=== PATIENT | female | born 1945 | race Caucasian/White ===

== ENCOUNTER → 2023-03-15 10:34 | Outpatient (REF) | payer OTHER, SELFPAY ==
[2023-03-15 13:35] LABS: % Basophils 0.8 % (0-2); % Eosinophils 4.4 % (0-6); % Immature Granulocytes 0.2 % (0-0.5); % Lymphocytes 20.1 % (20.5-51.1); % Neutrophils 62.5 % (42.2-75.2); Absolute Basophils 0.1 10^3/uL (0-0.2); Absolute Eosinophils 0.4 10^3/uL (0-0.7); Absolute Lymphocytes 1.7 10^3/uL (1.2-3.4); Absolute Neutrophils 5.4 10^3/uL (1.4-6.5); Hematocrit 37.6 % (37.0-47.0); Hemoglobin 12.7 g/dL (12.0-16.0); Mean Corp Hgb Conc. 33.8 g/dL (33.0-37.0); Mean Corpuscular Hgb 31.8 pg (27.0-31.0); Mean Corpuscular Volume 94.2 fL (81.0-99.0); Mean Platelet Volume 10.9 fL (7.4-10.4); Nucleated Red Blood Cells % 0 %; Platelet Count 251 10^3/uL (130-400); Red Blood Cell Count 3.99 10^6/uL (4.20-5.40); Red Cell Dist. Width 14.7 % (11.5-14.5); White Blood Cell Count 8.6 10^3/uL (4.8-10.8)
[2023-03-15 13:51] LABS: ALT (SGPT) 22 U/L (0-35); AST (SGOT) 32 U/L (14-36); Albumin 4.3 g/dl (3.5-5.0); Alkaline Phosphatase 64 U/L (38-126); Blood Urea Nitrogen 21 mg/dl (7-17); Carbon Dioxide 27 mmol/L (22-30); Chloride 101 mmol/L (98-107); Glucose 132 mg/dl (70-99); HDL Cholesterol 71 mg/dl; LDL Cholesterol, Calculated 63 mg/dl; Potassium 3.9 mmol/L (3.5-5.1); Sodium 132 mmol/L (135-145); Total Bilirubin 1.1 mg/dl (0.2-1.3); Total Cholesterol 177 mg/dl (50-199); Total Protein 6.9 g/dl (6.3-8.2); Triglyceride 217 mg/dl (10-149); Very Low Density Lipoprotein 43 mg/dl (0-30); eGFR > 60.00
[2023-03-15 13:56] LABS: Urine Albumin Negative (Neg - Trace); Urine Bilirubin Negative (Negative); Urine Character Clear (Clear); Urine Color Yellow; Urine Glucose Negative (Negative); Urine Ketone Negative (Negative); Urine Leukocyte Trace (Negative); Urine Nitrite Negative (Negative); Urine Occult Blood Negative (Negative); Urine Urobilinogen Negative (Neg - 1+)
[2023-03-15 14:06] LABS: Free T4 1.66 ng/dl (0.78-2.19); Vitamin D, 25-OH*** 36.7 ng/mL (30-80)
[2023-03-15 14:19] LABS: TSH 7.71 uIU/ml (0.47-4.68)
[2023-03-15 14:27] LABS: Urine Urothelial Cell 0-2 /LPF (FEW)
[2023-03-15 14:29] LABS: Urine Bacteria Few (Negative); Urine Red Blood Cell 0-2 /HPF (0-2)
[2023-03-15 14:34] LABS: Glycohemoglobin (HgbA1c) 6.6 % (4.0-5.6)
== END ==
LOC: OLABPV 10:34
PROVIDERS: ATTENDING PHYSICIAN Nurse Practitioner Family
DX: M32.13 Lung involvement in systemic lupus erythematosus (principal); I73.9 Peripheral vascular disease, unspecified; E03.9 Hypothyroidism, unspecified; E78.2 Mixed hyperlipidemia; I10 Essential (primary) hypertension; L93.2 Other local lupus erythematosus; Z13.89 Encounter for screening for other disorder; I69.30 Unspecified sequelae of cerebral infarction; R41.3 Other amnesia; Z00.00 Encounter for general adult medical examination without abnormal findings; R73.01 Impaired fasting glucose; E78.5 Hyperlipidemia, unspecified; N18.2 Chronic kidney disease, stage 2 (mild); E66.9 Obesity, unspecified; Z12.39 Encounter for other screening for malignant neoplasm of breast
CPT/HCPCS: 36415; 80053; 80061; 81003; 81015; 82306; 83036; 84439; 84443; 85025

== ENCOUNTER → 2023-05-25 10:07 | Outpatient (REF) | payer OTHER, SELFPAY | LOC: RAD 10:07 | PROVIDERS: ATTENDING PHYSICIAN Specialist; FAMILY PHYSICIAN Internal Medicine Geriatric Medicine | DX: G30.1 Alzheimer's disease with late onset (principal) | CPT/HCPCS: 70450 ==

== ENCOUNTER → 2024-01-02 09:30 | Outpatient (REF) | payer OTHER, SELFPAY ==
[2024-01-02 16:35] LABS: Urine Albumin Negative (Neg - Trace); Urine Bilirubin Negative (Negative); Urine Character Clear (Clear); Urine Color Yellow; Urine Glucose Negative (Negative); Urine Ketone Negative (Negative); Urine Leukocyte 2+ (Negative); Urine Nitrite Negative (Negative); Urine Occult Blood Negative (Negative); Urine Urobilinogen Negative (Neg - 1+)
[2024-01-02 16:45] LABS: Urine Bacteria Many (Negative); Urine Red Blood Cell 0-2 /HPF (0-2); Urine White Cell 30-40 /HPF (0-5)
== END ==
LOC: OLABPV 09:30
PROVIDERS: ATTENDING PHYSICIAN Internal Medicine Geriatric Medicine
DX: R30.0 Dysuria (principal)
CPT/HCPCS: 81003; 81015; 87086

== ENCOUNTER 2024-07-13 18:04 | Inpatient (IN) | payer OTHER, SELFPAY ==
[2024-07-13] VITALS (11 sets, daily range): BP systolic 122–152; BP diastolic 47–117; BMI 28.3
[2024-07-13 12:59] LABS: % Basophils 0.8 % (0-2); % Eosinophils 3.2 % (0-6); % Immature Granulocytes 0.3 % (0-0.5); % Lymphocytes 18.4 % (20.5-51.1); % Monocytes 10.8 % (1.7-9.3); % Neutrophils 66.5 % (42.2-75.2); Absolute Basophils 0.1 10^3/uL (0-0.2); Absolute Eosinophils 0.2 10^3/uL (0-0.7); Absolute Lymphocytes 1.3 10^3/uL (1.2-3.4); Absolute Monocytes 0.8 10^3/uL (0.1-0.6); Absolute Neutrophils 4.7 10^3/uL (1.4-6.5); Hematocrit 37.3 % (37.0-47.0); Hemoglobin 12.5 g/dL (12.0-16.0); Mean Corp Hgb Conc. 33.5 g/dL (33.0-37.0); Mean Corpuscular Hgb 32.3 pg (27.0-31.0); Mean Corpuscular Volume 96.4 fL (81.0-99.0); Mean Platelet Volume 11.6 fL (7.4-10.4); Nucleated Red Blood Cells % 0 %; Platelet Count 174 10^3/uL (130-400); Red Blood Cell Count 3.87 10^6/uL (4.20-5.40); Red Cell Dist. Width 13.1 % (11.5-14.5); White Blood Cell Count 7.1 10^3/uL (4.8-10.8)
[2024-07-13 13:11] LABS: ALT (SGPT) 20 U/L (0-35); AST (SGOT) 28 U/L (14-36); Albumin 4.3 g/dl (3.5-5.0); Alkaline Phosphatase 37 U/L (38-126); Blood Urea Nitrogen 30 mg/dl (7-17); Calcium 9.2 mg/dl (8.4-10.2); Carbon Dioxide 24 mmol/L (22-30); Chloride 111 mmol/L (98-107); Glucose 106 mg/dl (70-99); Potassium 4.8 mmol/L (3.5-5.1); Sodium 142 mmol/L (135-145); Total Bilirubin 0.6 mg/dl (0.2-1.3); Total Protein 6.5 g/dl (6.3-8.2); eGFR 38.27
--- NOTE | 2024-07-13 13:38 | ED.GENMED ---
History of Present Illness
General
Chief Complaint: Weakness
Source: patient and spouse
Exam Limitations: dementia
Time Seen by Provider: 07/13/24 13:23
Nursing documentation reviewed up to this point in time: agreed with
History of Present Illness
History of Present Illness:
78-year-old female with past medical history of hypertension, hyperlipidemia, hypothyroidism, dementia who presents to the emergency department with her for evaluation of weakness in the legs. Patient lives at [facility] with her .
She walks with a rollator. Unfortunately she is a limited historian due to her dementia. According to her she has had very poor appetite recently; this is a chronic issue in the setting of dementia. Apparently today while she was in the
bathroom on the toilet she called out because she was too weak to stand up from the toilet. was able to help her up and initially she seemed to be ambulating well with her rollator however after period of time she sat back down and again
could not get up because she felt her legs were too weak to stand. EMS was called to bring her to the hospital for assessment. When asked if anything is bothering her she says that she feels her legs are weak. It sounds like she also has some
chronic numbness in her legs. She denies any headache, neck pain. She does not feel weak in her hands she says. Denies chest pain or abdominal pain. says she has not been sick recently with a cough or fever or any other issues.
Past History
Past History
ED Past Medical History: HTN, Hypercholesterolemia, Hypothyroidism and Other ('skin lupus' 1.5 years ago)
ED Past Surgical History: Gynecological (Hysterectomy), Orthopedic (2 knee replacments (1 B/L)) and Other (B/L cataract resections; MRSA)
Social History
Tobacco: Non-smoker
Alcohol: None
Drug: None
Personal:
Living: with family
Employment: Retired
Family History
Family History: Other (reviewed and non-contributory)
Review of Systems
Review of Systems
Unable to obtain full review of systems at this time due to: dementia
All Other Systems: Not applicable
Phy Exam
Physical Exam
Physical Exam:
General: Awake, alert; no acute distress
Head: Normocephalic, atraumatic
Eyes: Conjunctiva normal, EOMI, pupils equal round reactive to light bilaterally
Throat: Airway intact, handling secretions
Neck: Trachea midline, supple without meningismus, no tenderness in the cervical spine
Lungs: Clear to auscultation bilaterally, no wheezing, rales, rhonchi
Heart: Regular rate and rhythm, no murmurs, gallops, or rubs appreciated
Abd: Soft, non distended, nontender
Back: No signs of trauma to the back or flank
Neuro: Cranial nerves intact, speech is fluid, she is generally weak in her legs proximally, distal strength is intact; weakness in the legs is symmetric�she gives effort against gravity but drops after less than 5 seconds; motor exam is intact in
the upper extremities bilaterally; sensory exam objectively intact
Skin: No signs of trauma
Extremities: Trace edema in the legs; distal extremities are warm and well-perfused
Scores
Heart Failure Risk
Heart Failure Risk Score: Not Applicable
Heart Score for Chest Pain Patients
STEMI patient?: Not applicable
Withdrawal Assessment of Alcohol
Withdrawal Assessment Completed?: Not applicable
Course
Orders/Labs/Results
Orders:
Orders
07/13/24 12:43
CMP [Comprehensive Metabolic Panel] Urgent
Complete Blood Count/With Diff Urgent
TSH Reflex To Free T4 Urgent
07/13/24 13:24
Electrocardiogram (*1) Urgent
Reason for Study: Fatigue / Weakness
EKG- Treatment ONCE
07/13/24 13:25
0.9% Sodium Chloride 1000 ml [Nss] 1,000 ml IV BOLUS
07/13/24 13:37
COVID-19 Antigen Urgent
Source: Nasal Swab
Influenza A+B Rapid Molecular Urgent
JESSIE Source: Nasal Swab
Specimen Description:
07/13/24 13:48
Add On- LAB Urgent
Tests Added?: TSH
07/13/24 13:50
Urinalysis Reflex To Culture Urgent
Date Specimen was Collected: 07/13/24
Time Specimen was Collected: 13:46
Comment: straight cath
Urine Microscopic Reflex Cult Urgent
Urine Culture Urgent
JESSIE Source: U
Specimen Description:
Date Specimen was Collected: 07/13/24
Time Specimen was Collected: 13:46
07/13/24 15:08
CefTRIAXone [Rocephin] 1,000 mg IV NOW STA
Abnormal Lab Results
07/13/24 07/13/24
12:43 13:50
RBC 3.87 L 10^6/uL
(4.20-5.40)
MCH 32.3 H pg
(27.0-31.0)
MPV 11.6 H fL
(7.4-10.4)
Absolute Monos (auto) 0.8 H 10^3/uL
(0.1-0.6)
Lymphocytes % 18.4 L %
(20.5-51.1)
Monocytes % 10.8 H %
(1.7-9.3)
Chloride 111 H mmol/L
(98-107)
BUN 30 H mg/dl
(7-17)
Creatinine 1.4 H mg/dL
(0.6-1.0)
Glucose 106 H mg/dl
(70-99)
Alkaline Phosphatase 37 L U/L
(38-126)
Ur Occult Blood Reflex 1+ A
(Negative)
Leukocyte Esterase Rfl 3+ A
(Negative)
Urine Albumin (Reflex) 1+ A
(Neg - Trace)
07/13/24 12:43
07/13/24 12:43
Vital Signs
Initial and Last Documented VS:
Initial Vital Signs
Temp Pulse Resp BP Pulse Ox
36.4 C 69 19 145/76 100
07/13/24 12:37 07/13/24 12:37 07/13/24 12:37 07/13/24 12:37 07/13/24 12:37
Last Documented Vital Signs
Temp Pulse Resp BP Pulse Ox
36.4 C 63 12 152/47 100
07/13/24 12:37 07/13/24 14:15 07/13/24 14:15 07/13/24 13:12 07/13/24 14:15
MDM/Problems Addressed
Differential Diagnosis Includes:
Differential diagnosis for weakness is broad and includes but not limited to: Anemia, electrolyte derangement/dehydration, deconditioning in the setting of dementia, polypharmacy, viral syndrome, UTI; clinical picture is not consistent with acute
stroke with symmetric weakness in the legs only in the absence of other acute neurologic deficits
MDM/Problems Addressed:
78-year-old female presents for evaluation of feeling weak in the legs today as described above. Hypertensive otherwise normal vitals here. Physical exam as above. She had lab work sent in triage including a CBC and a CMP which were significant
for an acute kidney injury with a creatinine of 1.4 baseline of 0.9. No anemia or other clinically significant abnormalities noted. Will add thyroid studies, urinalysis, viral swabs, EKG. Provide some IV fluids�certainly with reported poor p.o.
intake recently in the setting of dementia and RENETTA, possible her symptoms are primarily due to acute dehydration. Will monitor closely and reassess after the above.
Urinalysis concerning for infection will treat with Rocephin. Culture sent off. Viral swabs negative. Family very concerned about her degree of weakness currently only has at home for support. Suspect likely UTI and acute dehydration in
the setting of dementia and poor p.o. intake. Will admit for continued fluids, antibiotics, PT/OT evaluation. Discussed with hospitalist.
Chronic conditions affecting care:
Dementia
*Pulse Oximetry
Patient hypoxic: no
*Critical Care Note
Total Time (30-74mins, 75-104mins- exclusive of procedures): Not Applicable
Data Reviewed
Source: patient, spouse and ambulance crew
Further Testing Considered But Not Given:
Considered need for CT head but with nonfocal exam and very low clinical suspicion for stroke no indication for emergent head imaging
Patient Management
Discussion with other providers: Hospitalist (Discussed with hospitalist)
Escalation/DeEscalation of care consider admission/obs:
Admission indicated
ED Attending Note
-
Portions of this chart may have been created with voice recognition software.� Occasional wrong word or��sound alike� substitutions may have occurred due to the inherent limitations of voice recognition software.
Discharge Plan
Departure
Patient Disposition: Admit
Date of Disposition: 07/13/24
Time of Disposition: 15:14
Admit to doctor: Romario
Presentation/result/management discussed w/ accepting MD/DO: Hospitalist
Discharge Problem:
Acute UTI, Acute dehydration, RENETTA (acute kidney injury), Weakness
Prescriptions:
No Action
multivitamin [Dwm-Auashz-Njwzh] 1 EACH tablet
1 ea PO DAILY
amoxicillin 500 MG capsule
500 mg PO PRN PRN (Reason: dental appt)
levothyroxine 137 MCG tablet
125 mcg PO DAILY
atorvastatin 20 MG tablet
20 mg PO HS
amlodipine 10 MG tablet
10 mg PO DAILY
losartan 25 MG tablet
50 mg PO DAILY
hydroxychloroquine 200 MG tablet
400 mg PO HS
cyanocobalamin (vitamin B-12) 1,000 MCG tablet
1,000 mcg PO DAILY Qty: 30 0RF
Referrals:
Anshu Ku MD [Family Provider, Internal Medicine]
Interventions
Interventions:
*Risk Screen - Suicide Last Done: 07/13/24 12:37
*General Assessment Last Done: 07/13/24 13:20
*Neglect/Abuse Screening Last Done: 07/13/24 12:37
*ED- Fall Risk Assessment Last Done: 07/13/24 13:15
*ED COVID-19 Vaccine History Last Done: 07/13/24 13:15
ED- Cardiac Assessment Last Done: 07/13/24 13:18
ED- Neurological Assessment Last Done: 07/13/24 13:18
ED- Pulmonary Assessment Last Done: 07/13/24 13:18
Discharge Date and Time
Print Language: MACEDONIAN
[2024-07-13] MEDS: NSS 1000 IV ×2 (13:49→21:05)
[2024-07-13 14:09] LABS: Urine Albumin 1+ (Neg - Trace); Urine Bilirubin Negative (Negative); Urine Character Clear (Clear); Urine Color Yellow; Urine Glucose Negative (Negative); Urine Ketone Negative (Negative); Urine Leukocyte 3+ (Negative); Urine Nitrite Negative (Negative); Urine Occult Blood 1+ (Negative); Urine Urobilinogen Negative (Neg - 1+); Urine pH 6.5 (5.0-9.0)
[2024-07-13 14:10] LABS: COVID-19 Antigen Negative (Negative)
[2024-07-13 15:10] LABS: Urine Bacteria Few (Negative); Urine Red Blood Cell 0-2 /HPF (0-2)
[2024-07-13 15:11] LABS: Urine White Cell 26-30 /HPF (0-5)
[2024-07-13] MEDS: ROCEPHIN 1000 MG IV (15:30)
--- NOTE | 2024-07-13 16:37 | HPS.HSE ---
Family Physician
-
Family Physician: Anshu Ku
Chief Complaint
-
weakness
History of Present Illness
78-year-old female past medical history of hypertension, hyperlipidemia, hypothyroidism, dementia, rheumatological condition, diabetes, presenting for weakness in legs. Patient lives appointment. She walks with a rollator. Has had very poor
appetite recently. Today while she was in the bathroom in the toilet she came up that she was too weak to stand up from the toilet. EMS was called. Denies chest pain or abdominal pain. She denies any cough or fever.
She complains of urinary burning for unspecified time. Complains of heaviness in her head. She has been eating less recently.
She has been complaining of feeling depressed and feels like she lives longer than she should have. Son states that she feels like this is due to her memory issues.
Does not smoke or drink alcohol.
Medical History
Past Medical History
Past Medical History: Reports Other (hypertension, hyperlipidemia, hypothyroidism, dementia, rheumatological condition, diabetes)
Past Surgical History: Reports Other ( Gynecological (Hysterectomy), Orthopedic (2 knee replacments (1 B/L)) and Other (B/L cataract resections; MRSA))
Social History
Tobacco: Non-smoker
Alcohol: None
Drug: None
Family History
Family History: Not pertinent
Allergies / Home Medications
Allergies reflects when Allergies were last updated in [facility].
Home Medications with original date entered in Qnary
Allergy/Medication List:
Allergies
Allergy/AdvReac Type Severity Reaction Status Date / Time
No Known Allergies Allergy Verified 07/13/24 12:36
Home Medications
atorvastatin 20 mg tablet 20 mg PO HS 01/06/16
hydroxychloroquine 200 mg tablet 400 mg PO DAILY 01/06/16
clopidogrel 75 mg tablet (Plavix) 75 mg PO DAILY 07/13/24
diphenhydramine 25 mg-acetaminophen 500 mg tablet (Acetaminophen PM) 2 tab PO HSPRN PRN sleep 07/13/24
furosemide 20 mg tablet (Lasix) 20 mg PO DAILY 07/13/24
galantamine 4 mg tablet 8 mg PO BID 07/13/24
levothyroxine 150 mcg tablet 150 mcg PO DAILY 07/13/24
losartan 100 mg tablet 100 mg PO DAILY 07/13/24
memantine 10 mg tablet 10 mg PO BID 07/13/24
metformin 500 mg tablet 500 mg PO BID 07/13/24
therapeutic multivitamin 1 tab PO DAILY 07/13/24
Review of Systems
-
History Source: Patient
A 12 point ROS was completed and negative except as noted: Yes
Constitutional: Reports No Symptoms
EENT: Reports No Symptoms
Respiratory: Reports No Symptoms
Cardiac: Reports No Symptoms
Abdomen/GI: Reports No Symptoms
: Reports See HPI
Musculoskeletal: Reports No Symptoms
Skin: Reports No Symptoms
Neurological: Reports No Symptoms
Endocrine: Reports No Symptoms
Hematologic/Lymphatic: Reports No Symptoms
Psych: Reports No Symptoms
Physical Exam
Vital Signs
Vital Signs
Temp Pulse Resp BP Pulse Ox
97.6 F 71 16 149/73 99
07/13/24 12:37 07/13/24 15:15 07/13/24 15:15 07/13/24 15:03 07/13/24 15:15
Physical Exam
General: Well Developed, Well Nourished and No Apparent Distress
HEENT: NormoCephalic, Moist mucous membranes and Atraumatic
Respiratory: Clear
Cardiac: S1/S2 and Regular Rhythm; No Murmur or Rub
GI: Soft, Non Tender, Non Distended and Normal Bowel Sounds; No Organomegaly
Rectal: Deferred by Provider
Musculoskeletal: No Clubbing, No Cyanosis and No Edema
Skin: No Rash
Neuro: Nonfocal/grossly intact
Laboratory Results
-
07/13/24 12:43
07/13/24 12:43
Laboratory Results
Total Bilirubin 0.6 mg/dl (0.2-1.3) 07/13/24 12:43
AST 28 U/L (14-36) 07/13/24 12:43
ALT 20 U/L (0-35) 07/13/24 12:43
Alkaline Phosphatase 37 U/L (38-126) L 07/13/24 12:43
Data Reviewed
-
Lab Data: Labs Reviewed by me
Old Records: Reviewed
Impression/Plan
-
IMPRESSION:
PLAN:
# Ambulatory dysfunction/weakness/dysuria likely UTI with hypovolemia
- Urinalysis 26-30 WBC, +3 leukocyte esterase
- Ceftriaxone
# Acute kidney injury
- IV fluids
- Hold losartan and Lasix
- Family unsure why she takes Lasix, no history of CHF or swelling
Essential hypertension
Hyperlipidemia
- Continue statin
Hypothyroidism
- Continue levothyroxine
Dementia
- Continue galantamine,
Type 2 diabetes
- Hold metformin
- Insulin sliding scale
Rheumatologic condition
- Continue hydroxychloroquine
Aspirin/Plavix
- Unclear why on these medications
DNR/DNI
DVT prophylaxis�heparin
Regular diet
[2024-07-13 16:43] LABS: TSH Reflex To Free T4 2.17 uIU/ml (0.47-4.68)
[2024-07-13] MEDS: RAZADYNE 8 MG PO (21:00)
--- NOTE | 2024-07-13 21:00 | TRANSFER ---
pt arrived from ED via stretcher. pt was a pullover from stretcher to bed. pt AAOx3 upon arrival, can be forgetful. bed alarm and fall band placed. VSS. call leonardo within reach, family at bedside, POC ongoing.
[2024-07-13] MEDS: TYLENOL 1000 MG PO (21:06)
[2024-07-13] MEDS: LIPITOR 20 MG PO (21:06)
[2024-07-13] MEDS: BENADRYL 50 MG PO (21:07)
[2024-07-13] MEDS: NAMENDA 10 MG PO (21:07)
[2024-07-13] MEDS: HEPARIN 5000 UNITS SC (21:10)
[2024-07-13 23:18] LABS: Glucose - Point of Care 81 mg/dl (70-99)
[2024-07-14] VITALS (7 sets, daily range): BP systolic 133–187; BP diastolic 57–85; PULSE 92; BMI 28.4
[2024-07-14] MEDS: SYNTHROID 150 MCG PO (05:17)
[2024-07-14 07:58] LABS: % Basophils 0.9 % (0-2); % Eosinophils 3.9 % (0-6); % Immature Granulocytes 0.2 % (0-0.5); % Lymphocytes 19.9 % (20.5-51.1); % Monocytes 11.4 % (1.7-9.3); % Neutrophils 63.7 % (42.2-75.2); Absolute Basophils 0.1 10^3/uL (0-0.2); Absolute Eosinophils 0.3 10^3/uL (0-0.7); Absolute Lymphocytes 1.3 10^3/uL (1.2-3.4); Absolute Monocytes 0.7 10^3/uL (0.1-0.6); Absolute Neutrophils 4.1 10^3/uL (1.4-6.5); Hematocrit 36.5 % (37.0-47.0); Hemoglobin 12.1 g/dL (12.0-16.0); Mean Corp Hgb Conc. 33.2 g/dL (33.0-37.0); Mean Corpuscular Hgb 32.3 pg (27.0-31.0); Mean Corpuscular Volume 97.3 fL (81.0-99.0); Mean Platelet Volume 11.7 fL (7.4-10.4); Nucleated Red Blood Cells % 0 %; Platelet Count 161 10^3/uL (130-400); Red Blood Cell Count 3.75 10^6/uL (4.20-5.40); Red Cell Dist. Width 13.2 % (11.5-14.5); White Blood Cell Count 6.4 10^3/uL (4.8-10.8)
[2024-07-14 08:18] LABS: Glucose - Point of Care 52 mg/dl (70-99)
[2024-07-14 08:32] LABS: ALT (SGPT) 18 U/L (0-35); AST (SGOT) 26 U/L (14-36); Albumin 3.8 g/dl (3.5-5.0); Alkaline Phosphatase 41 U/L (38-126); Blood Urea Nitrogen 22 mg/dl (7-17); Calcium 8.5 mg/dl (8.4-10.2); Carbon Dioxide 22 mmol/L (22-30); Chloride 114 mmol/L (98-107); Estimated Creatinine Clearance 44 ml/min; Glucose 101 mg/dl (70-99); Potassium 4.1 mmol/L (3.5-5.1); Sodium 142 mmol/L (135-145); Total Bilirubin 0.6 mg/dl (0.2-1.3); Total Protein 5.9 g/dl (6.3-8.2); eGFR 57.31
[2024-07-14 08:41] LABS: Glucose - Point of Care 109 mg/dl (70-99)
[2024-07-14] MEDS: PLAQUENIL 400 MG PO (09:04)
[2024-07-14] MEDS: PLAVIX 75 MG PO (09:04)
[2024-07-14] MEDS: THERAGRAN 1 TABLET PO (09:04)
[2024-07-14] MEDS: NAMENDA 10 MG PO ×2 (09:04→21:07)
[2024-07-14] MEDS: RAZADYNE 8 MG PO ×2 (09:04→21:07)
[2024-07-14] MEDS: HEPARIN 5000 UNITS SC ×2 (09:04→21:07)
[2024-07-14] MEDS: DESENEX/MITRAZOL/ZEASORB 1 APPLIC TOPICAL ×2 (09:06→21:06)
[2024-07-14] MEDS: NSS 1000 IV ×2 (09:06→16:01)
[2024-07-14 09:27] LABS: Glycohemoglobin (HgbA1c) 5.9 % (4.0-5.6)
--- NOTE | 2024-07-14 10:23 | CM ---
CM reviewed chart, patient sen bedside, initial assessment completed. Patient resides with her spouse and nephews in a single story home, about 2-3 steps to enter. Patient denies use of DME, denies VN/SNF history. Patient confirms PCP Dr. Salcido,
does not have a local pharmacy, utilizes [facility]. Patient confirms insurance coverage and denies financial insecurities. Patient reports experiencing memory issues lately. CM will continue to follow for all discharge planning needs, TT to
Hospitalist for PT orders.
Plan; home, watch for PT recommendations.
[2024-07-14 10:49] LABS: Glucose - Point of Care 105 mg/dl (70-99)
--- NOTE | 2024-07-14 11:48 | PTCARENOTE ---
Pt was hypoglycemic at morning accucheck. Her BS was 52 and asymptomatic. OJ was given and the BS was rechecked. Upon recheck the BS was 109. I notified the MD Welsh to advise of findings. The BS will be rechecked AT 1040, 1240 and 3am. 1040
accucheck was 105.
[2024-07-14 12:44] LABS: Glucose - Point of Care 112 mg/dl (70-99)
--- NOTE | 2024-07-14 13:37 | W.PN.HOSP.TC ---
Today's Communication/Plan
-
ct head
f/u ucx
f/u bmp
Assessment / Plan
Assessment / Plan
Physical Exam
General: Well Developed, Well Nourished and No Apparent Distress
HEENT: NormoCephalic, Moist mucous membranes and Atraumatic
Respiratory: Clear
Cardiac: S1/S2 and Regular Rhythm; No Murmur or Rub
GI: Soft, Non Tender, Non Distended and Normal Bowel Sounds; No Organomegaly
Rectal: Deferred by Provider
Musculoskeletal: No Clubbing, No Cyanosis and No Edema
Skin: No Rash
Neuro: Nonfocal/grossly intact
# Ambulatory dysfunction/weakness/dysuria likely UTI with hypovolemia
- Urinalysis 26-30 WBC, +3 leukocyte esterase
- Ceftriaxone
-head ct
# Acute kidney injury, improving
- IV fluids
- Hold losartan and Lasix
- Family unsure why she takes Lasix, no history of CHF or swelling
Essential hypertension
Hyperlipidemia
- Continue statin
Hypothyroidism
- Continue levothyroxine
Dementia
- Continue galantamine,
Type 2 diabetes
- Hold metformin
- Insulin sliding scale
Rheumatologic condition
- Continue hydroxychloroquine
#Plavix
- ?CVA hx
Unclear why on these medications
-head ct
DNR/DNI
DVT prophylaxis�heparin
Regular diet
Anticipated Discharge: 24 - 48 hours
Subjective/Interval History
-
Date of Service: July 14, 2024
no acute changes
Objective Data
-
Labs:
Laboratory Results
07/14/24
07:33
WBC 6.4
Hgb 12.1
Hct 36.5 L
Plt Count 161
Sodium 142
Potassium 4.1
Chloride 114 H
Carbon Dioxide 22
BUN 22 H
Creatinine 1.0
Glucose 101 H
Calcium 8.5
Total Bilirubin 0.6
AST 26
ALT 18
Alkaline Phosphatase 41
Vital Signs:
Vital Signs
Temp Pulse Resp BP Pulse Ox
98.2 F 92 18 160/65 99
07/14/24 11:25 07/14/24 11:25 07/14/24 11:25 07/14/24 11:25 07/14/24 11:25
I&O
07/13/24 07/14/24 07/15/24
06:59 06:59 06:59
Intake Total 240 / 240
Balance 240 / 240
Review of Systems
-
History Source: Patient
All other systems: Not reviewed unless documented
Data Reviewed
-
Labs: Labs Reviewed by me
[2024-07-14] MEDS: STERILE WATER FOR INJECTION 10 ML IV (16:02)
[2024-07-14] MEDS: ROCEPHIN 1000 MG IV (16:02)
[2024-07-14 16:19] LABS: Glucose - Point of Care 73 mg/dl (70-99)
[2024-07-14] MEDS: SEROQUEL 12.5 MG PO (17:23)
[2024-07-14 17:44] LABS: Glucose - Point of Care 141 mg/dl (70-99)
--- NOTE | 2024-07-14 18:07 | PTCARENOTE ---
Pt has been agitated all day with the exception of the time her was visiting. He left and the pt became agitated again, refused to stay in bed or chair. The alarms sounding. The pt was placed in a chance chair in hallway. 1:1 with pt and she
still wont follow commands. The pt was walked around the floor several times. Reached out to MD Welsh and he put in for a one time dose of Seroquel. BS is 141, vitals stable. O2 is 98%RA.
[2024-07-14] MEDS: TYLENOL 1000 MG PO (21:06)
[2024-07-14] MEDS: LIPITOR 20 MG PO (21:06)
[2024-07-14] MEDS: BENADRYL 50 MG PO (21:07)
[2024-07-14 21:57] LABS: Glucose - Point of Care 122 mg/dl (70-99)
[2024-07-15] VITALS (7 sets, daily range): BP systolic 109–142; BP diastolic 49–81; PULSE 63
[2024-07-15] MEDS: SEROQUEL 12.5 MG PO (02:02)
[2024-07-15 02:55] LABS: Glucose - Point of Care 126 mg/dl (70-99)
[2024-07-15] MEDS: NSS 1000 IV (05:19)
[2024-07-15] MEDS: SYNTHROID 150 MCG PO (05:19)
--- NOTE | 2024-07-15 07:24 | PN.CDI ---
CDI
- -
CDI:
Physician Documentation Request
Admit Date: 07/13/24 18:04
Dear Doctor Anitha,
Please review the following and provide your response in the progress notes.
Clinical Indicators:
PN, 07/14
# Ambulatory dysfunction/weakness/dysuria
#...likely UTI with hypovolemia
# Acute kidney injury, improving
#Dementia
#...- Continue galantamine,
07/14/24 18:07 - Patient Care Note
#Pt has been agitated all day with the exception of the time her was visiting.
#...He left and the pt became agitated again, refused to stay in bed or chair.
#...The alarms sounding. The pt was placed in a chance chair in hallway. 1:1 with pt
#...and she still wont follow commands.
#Reached out to MD Welsh and he put in for a one time dose of Seroquel.
Based on the above and your clinical assessment, please clarify the most likely etiology of the confusion/altered mental status.
Encephalopathy - indicate type, such as metabolic, toxic, septic, alcoholic, anoxic, hypertensive etc. due to a specific condition such as UTI, CVA, hyponatremia etc.
Baseline Dementia - indicate type, such as Alzheimer's, senile, vascular, Lewy body etc., and any associated behavioral disturbances (aggressive, combative or violent behavior) if present
Other (please specify)
Use of terms such as suspected, likely, concern for, or probable (associated with a specific diagnosis that is being evaluated, monitored, or treated as if it exists) are acceptable and can be coded in the inpatient setting, when documented at the
time of discharge.
Thank you,
Bettina Wilkinson RN BSN CCDS
CDI Specialist
Please contact via tiger text
Please use your independent medical judgment in providing your response.
[2024-07-15] MEDS: PLAQUENIL 400 MG PO (07:34)
[2024-07-15] MEDS: RAZADYNE 8 MG PO ×2 (07:34→21:06)
[2024-07-15] MEDS: THERAGRAN 1 TABLET PO (07:34)
[2024-07-15] MEDS: PLAVIX 75 MG PO (07:35)
[2024-07-15] MEDS: NAMENDA 10 MG PO ×2 (07:35→21:06)
[2024-07-15] MEDS: DESENEX/MITRAZOL/ZEASORB 1 APPLIC TOPICAL ×2 (07:35→21:08)
[2024-07-15] MEDS: HEPARIN SC ×2 (07:35→07:49)
[2024-07-15 07:38] LABS: Hemoglobin 11.2 g/dL (12.0-16.0); Mean Corp Hgb Conc. 32.9 g/dL (33.0-37.0); Mean Corpuscular Hgb 31.9 pg (27.0-31.0); Mean Corpuscular Volume 96.9 fL (81.0-99.0); Mean Platelet Volume 11.4 fL (7.4-10.4); Platelet Count 156 10^3/uL (130-400); Red Blood Cell Count 3.51 10^6/uL (4.20-5.40); Red Cell Dist. Width 13.1 % (11.5-14.5); White Blood Cell Count 7.2 10^3/uL (4.8-10.8)
[2024-07-15 07:40] LABS: Glucose - Point of Care 86 mg/dl (70-99)
[2024-07-15 08:08] LABS: ALT (SGPT) 19 U/L (0-35); AST (SGOT) 30 U/L (14-36); Albumin 3.7 g/dl (3.5-5.0); Alkaline Phosphatase 37 U/L (38-126); Blood Urea Nitrogen 13 mg/dl (7-17); Calcium 8.7 mg/dl (8.4-10.2); Carbon Dioxide 22 mmol/L (22-30); Chloride 117 mmol/L (98-107); Estimated Creatinine Clearance 48 ml/min; Glucose 101 mg/dl (70-99); Potassium 4.1 mmol/L (3.5-5.1); Sodium 143 mmol/L (135-145); Total Bilirubin 0.5 mg/dl (0.2-1.3); Total Protein 5.8 g/dl (6.3-8.2); eGFR > 60.00
[2024-07-15 12:37] LABS: Glucose - Point of Care 107 mg/dl (70-99)
--- NOTE | 2024-07-15 13:23 | W.PN.HOSP.TC ---
Today's Communication/Plan
-
cont abx course
holding ARB
Resume lasix on DC
monitor renal function
dc ready, SNF v Home PT
Assessment / Plan
Assessment / Plan
Physical Exam
General: Well Developed, Well Nourished and No Apparent Distress
HEENT: NormoCephalic, Moist mucous membranes and Atraumatic
Respiratory: Clear
Cardiac: S1/S2 and Regular Rhythm; No Murmur or Rub
GI: Soft, Non Tender, Non Distended and Normal Bowel Sounds; No Organomegaly
Rectal: Deferred by Provider
Musculoskeletal: No Clubbing, No Cyanosis and No Edema
Skin: No Rash
Neuro: Nonfocal/grossly intact
# Ambulatory dysfunction/weakness/dysuria likely UTI with hypovolemia
- Urinalysis 26-30 WBC, +3 leukocyte esterase
- Ceftriaxone - dc on cefdinir on dc; Cultures negative although with UA and symptoms, with improvment in renal function - will dc on 5 days total
-head ct with evidence of worsening atrophy�indicative of worsening dementia/aging
# Acute kidney injury, resolved
- IV fluids, can dc now
- Continue hold losartan until cleared by PCP outpatient
� Resume Lasix, can f/u outpatient for continuation
- Family unsure why she takes Lasix, no history of CHF or swelling
Essential hypertension
Hyperlipidemia
- Continue statin
Hypothyroidism
- Continue levothyroxine
Dementia
- Continue galantamine,
Type 2 diabetes
- Hold metformin
- Insulin sliding scale
Rheumatologic condition
- Continue hydroxychloroquine
#Plavix
- ?CVA hx
Unclear why on these medications
-head ct
DNR/DNI
DVT prophylaxis�heparin
Regular diet
More than 30 minutes spent in discharge including
Final examination of the patient
Summarizing hospital stay
Instructions for continuing care to all relevant caregivers
Preparation of discharge records, prescriptions, and referral forms
Total time spent (in minutes): 36
Anticipated Discharge: Today
Subjective/Interval History
-
Date of Service: July 15, 2024
no acute events overnight
Objective Data
-
Labs:
Laboratory Results
07/15/24
07:18
WBC 7.2
Hgb 11.2 L
Hct 34.0 L
Plt Count 156
Sodium 143
Potassium 4.1
Chloride 117 H
Carbon Dioxide 22
BUN 13
Creatinine 0.9
Glucose 101 H
Calcium 8.7
Total Bilirubin 0.5
AST 30
ALT 19
Alkaline Phosphatase 37 L
Vital Signs:
Vital Signs
Temp Pulse Resp BP Pulse Ox
97.4 F 68 18 142/62 97
07/15/24 07:45 07/15/24 07:45 07/15/24 07:45 07/15/24 07:45 07/15/24 07:45
I&O
07/14/24 07/15/24 07/16/24
06:59 06:59 06:59
Intake Total 240 / 240 600 / 600 420 / 420
Balance 240 / 240 600 / 600 420 / 420
Review of Systems
-
History Source: Patient
All other systems: Not reviewed unless documented
Data Reviewed
-
Labs: Labs Reviewed by me
[2024-07-15] MEDS: NSS IV (13:33)
--- NOTE | 2024-07-15 15:47 | CM ---
Chart reviewed. Patient resides w/ spouse at [facility] independent living.
Patient stable for d/c. Therapy rec SNF vs home PT.
Discussed w/ patient, spouse and son bedside, all agreeable to SNF at [facility]. Referral sent in [facility]. Per Susie/admissions, can accept patient today
CM called [phone] ask blue to initiate auth, spoke w/ Jose Miguel. Due to patient's dementia dx, SNF request automatically has to be reviewed by medical service technician. Pending auth [id number]
Updated hospitalist
[facility] SNF
Report: [phone]

Plan: [facility], pending auth
[2024-07-15] MEDS: ROCEPHIN 1000 MG IV (16:10)
[2024-07-15] MEDS: STERILE WATER FOR INJECTION 10 ML IV (16:10)
[2024-07-15 16:18] LABS: Glucose - Point of Care 113 mg/dl (70-99)
[2024-07-15] MEDS: HEPARIN 5000 UNITS SC (21:05)
[2024-07-15] MEDS: LIPITOR 20 MG PO (21:06)
[2024-07-15] MEDS: BENADRYL 50 MG PO (21:06)
[2024-07-15] MEDS: TYLENOL 1000 MG PO (21:06)
[2024-07-15 21:25] LABS: Glucose - Point of Care 159 mg/dl (70-99)
--- NOTE | 2024-07-15 21:30 | PTCARENOTE ---
Patient taken off 1:1 observation at 2130. Patient is calm and cooperative. Bed alarm is on. Patient in no acute distress. Will continue to monitor.
[2024-07-16 03:00] VITALS: BP 120/59
[2024-07-16] MEDS: SYNTHROID 150 MCG PO (05:16)
[2024-07-16 07:24] VITALS: BP 135/54
[2024-07-16 07:36] LABS: Hematocrit 33.2 % (37.0-47.0); Hemoglobin 11.1 g/dL (12.0-16.0); Mean Corp Hgb Conc. 33.4 g/dL (33.0-37.0); Mean Corpuscular Hgb 32.6 pg (27.0-31.0); Mean Corpuscular Volume 97.6 fL (81.0-99.0); Mean Platelet Volume 11.8 fL (7.4-10.4); Platelet Count 146 10^3/uL (130-400); Red Cell Dist. Width 13.3 % (11.5-14.5); White Blood Cell Count 6.9 10^3/uL (4.8-10.8)
[2024-07-16 08:10] LABS: ALT (SGPT) 23 U/L (0-35); AST (SGOT) 31 U/L (14-36); Albumin 3.4 g/dl (3.5-5.0); Alkaline Phosphatase 38 U/L (38-126); Blood Urea Nitrogen 14 mg/dl (7-17); Calcium 8.6 mg/dl (8.4-10.2); Carbon Dioxide 23 mmol/L (22-30); Chloride 115 mmol/L (98-107); Estimated Creatinine Clearance 44 ml/min; Glucose 104 mg/dl (70-99); Potassium 4.4 mmol/L (3.5-5.1); Sodium 143 mmol/L (135-145); Total Bilirubin 0.3 mg/dl (0.2-1.3); Total Protein 5.6 g/dl (6.3-8.2); eGFR 57.31
[2024-07-16] MEDS: HEPARIN 5000 UNITS SC (09:33)
[2024-07-16] MEDS: PLAVIX 75 MG PO (09:35)
[2024-07-16] MEDS: THERAGRAN 1 TABLET PO (09:35)
[2024-07-16] MEDS: RAZADYNE 8 MG PO (09:35)
[2024-07-16] MEDS: PLAQUENIL 400 MG PO (09:35)
[2024-07-16] MEDS: NAMENDA 10 MG PO (09:38)
[2024-07-16 09:39] LABS: Glucose - Point of Care 104 mg/dl (70-99)
[2024-07-16] MEDS: DESENEX/MITRAZOL/ZEASORB TOPICAL (09:39)
--- NOTE | 2024-07-16 10:02 | CM ---
Auth approved beginning today, 07/16 next review is on 07/21
Auth ref [id number]
Updated hospitalist and spouse, agreeable to d/c
Updated Susie/[facility] admissions
Ambulance transport, forms on chart
IMM verbally reviewed, copy on chart
[facility]
Report: [phone]

Plan: D/c to [facility] today. Ambulance transport
--- NOTE | 2024-07-16 11:31 | W.PN.HOSP.TC ---
Addendum entered and electronically signed by Chepe Welsh MD 07/17/24 15:38:
[id number]
Addendum entered and electronically signed by Chepe Welsh MD 07/17/24 15:17:
Baseline Dementia
Original Note:
Today's Communication/Plan
-
cont abx course
holding ARB, Lasix�continue aspirin PCP outpatient
monitor renal function
dc ready, SNF
Follow-up PCP outpatient
Assessment / Plan
Assessment / Plan
Physical Exam
General: Well Developed, Well Nourished and No Apparent Distress
HEENT: NormoCephalic, Moist mucous membranes and Atraumatic
Respiratory: Clear
Cardiac: S1/S2 and Regular Rhythm; No Murmur or Rub
GI: Soft, Non Tender, Non Distended and Normal Bowel Sounds; No Organomegaly
Rectal: Deferred by Provider
Musculoskeletal: No Clubbing, No Cyanosis and No Edema
Skin: No Rash
Neuro: Nonfocal/grossly intact
# Ambulatory dysfunction/weakness/dysuria likely RENETTA, UTI with hypovolemia along with worsening dementia
- Urinalysis 26-30 WBC, +3 leukocyte esterase
- Ceftriaxone - dc on cefdinir on dc; Cultures negative although with UA and symptoms, with improvment in renal function - will dc on 5 days total
-head ct with evidence of worsening atrophy�indicative of worsening dementia/aging
# Acute kidney injury, resolved
- IV fluids, can dc now
- Continue hold losartan until cleared by PCP outpatient
� Hold Lasix, can f/u outpatient for continuation; f/u bmp outpt
- Family unsure why she takes Lasix, no history of CHF or swelling
Essential hypertension
Hyperlipidemia
- Continue statin
Hypothyroidism
- Continue levothyroxine
Dementia
- Continue galantamine,
Type 2 diabetes
- Hold metformin
- Insulin sliding scale
Rheumatologic condition
- Continue hydroxychloroquine
#Plavix
- ?CVA hx
Unclear why on these medications
-head ct
DNR/DNI
DVT prophylaxis�heparin
Regular diet
More than 30 minutes spent in discharge including
Final examination of the patient
Summarizing hospital stay
Instructions for continuing care to all relevant caregivers
Preparation of discharge records, prescriptions, and referral forms
Total time spent (in minutes): 36
Anticipated Discharge: Today
Subjective/Interval History
-
Date of Service: July 16, 2024
No acute events overnight
Objective Data
-
Labs:
Laboratory Results
07/16/24
07:18
WBC 6.9
Hgb 11.1 L
Hct 33.2 L
Plt Count 146
Sodium 143
Potassium 4.4
Chloride 115 H
Carbon Dioxide 23
BUN 14
Creatinine 1.0
Glucose 104 H
Calcium 8.6
Total Bilirubin 0.3
AST 31
ALT 23
Alkaline Phosphatase 38
Vital Signs:
Vital Signs
Temp Pulse Resp BP Pulse Ox
97.5 F 72 18 135/54 99
07/16/24 07:24 07/16/24 07:24 07/16/24 07:24 07/16/24 07:24 07/16/24 07:24
I&O
07/15/24 07/16/24 07/17/24
06:59 06:59 06:59
Intake Total 600 / 600 1260 / 1260 120 / 120
Balance 600 / 600 1260 / 1260 120 / 120
Review of Systems
-
History Source: Patient
All other systems: Not reviewed unless documented
Data Reviewed
-
CT Scan: Report Reviewed by me
Labs: Labs Reviewed by me
[2024-07-16 11:36] VITALS: BP 153/61
--- NOTE | 2024-07-16 11:38 | W.DS.TRANS ---
DC Summary - Conference Services Coordinator
-
Discharge Instructions:
Discharge Diagnosis/Procedures Ambulatory dysfunction/weakness/dysuria likely
UTI with hypovolemia
Acute kidney injury, improving
Diet Low Fat,Low Cholesterol,Restrict fluids to 48 oz
Activity As tolerated
Blood Work cbc and cmp in 3-5 days with pcp
Instructions:
Stand-Alone Forms:
Changes to Home Medications: Yes
Discharge Medications:
DC Medications w/original date entered in bCODE
atorvastatin 20 mg tablet 20 mg PO HS High Cholesterol 01/06/16
hydroxychloroquine 200 mg tablet 400 mg PO DAILY Autoimmune Disorder 01/06/16
clopidogrel 75 mg tablet (Plavix) 75 mg PO DAILY Blood Clot Prevention/Tx 07/13/24
furosemide 20 mg tablet (Lasix) 20 mg PO DAILY Fluid Retention/Swelling 07/13/24
Held on 07/16/24. Instructions: Resume on 07/22/24. Hold until cleared by PCP
galantamine 4 mg tablet 8 mg PO BID Diabetes 07/13/24
levothyroxine 150 mcg tablet 150 mcg PO DAILY Thyroid 07/13/24
losartan 100 mg tablet 100 mg PO DAILY Blood Pressure 07/13/24
Held on 07/16/24. Instructions: Resume on 07/22/24. Until cleared by PCP monitoring renal function
memantine 10 mg tablet 10 mg PO BID Mental Health/Anxiety 07/13/24
metformin 500 mg tablet 500 mg PO BID Diabetes 07/13/24
therapeutic multivitamin 1 tab PO DAILY Supplement 07/13/24
cefdinir 300 mg capsule 300 mg PO Q12H 4 days #8 caps 07/15/24
miconazole nitrate 2 % topical powder (Miconazorb AF) 1 applic topical BID #85 grams 07/15/24
Home Medication Changes
cefdinir 300 mg capsule 300 mg PO Q12H 4 days #8 caps 07/15/24
miconazole nitrate 2 % topical powder (Miconazorb AF) 1 applic topical BID #85 grams 07/15/24
Pending Results: No
--- NOTE | 2024-07-16 12:14 | PTCARENOTE ---
Report given to JAKE Lorenzana at [facility].
[2024-07-16 13:04] LABS: Glucose - Point of Care 82 mg/dl (70-99)
[2024-07-16 15:25] VITALS: BP 144/69
[2024-07-16] MEDS: STERILE WATER FOR INJECTION 10 ML IV (16:05)
[2024-07-16] MEDS: ROCEPHIN 1000 MG IV (16:05)
[2024-07-16 17:04] LABS: Glucose - Point of Care 83 mg/dl (70-99)
== END 2024-07-16 18:30 | DRG 884 ==
LOC: 4 EAST ACU 18:04
PROVIDERS: Emergency Medicine; ADMITTING PHYSICIAN Hospitalist; ATTENDING PHYSICIAN Internal Medicine; EMERGENCY PHYSICIAN Emergency Medicine; FAMILY PHYSICIAN Internal Medicine Geriatric Medicine; REFERRING PHYSICIAN Specialist
DX: F03.90 Unspecified dementia, unspecified severity, without behavioral disturbance, psychotic disturbance, mood disturbance, and anxiety (principal); N39.0 Urinary tract infection, site not specified; N17.9 Acute kidney failure, unspecified; E86.1 Hypovolemia; Z79.890 Hormone replacement therapy; E78.00 Pure hypercholesterolemia, unspecified; E03.9 Hypothyroidism, unspecified; E11.9 Type 2 diabetes mellitus without complications; Z90.710 Acquired absence of both cervix and uterus; I10 Essential (primary) hypertension; Z66 Do not resuscitate; Z79.02 Long term (current) use of antithrombotics/antiplatelets; Z79.84 Long term (current) use of oral hypoglycemic drugs; Z11.52 Encounter for screening for COVID-19
CPT/HCPCS: 70450; 80053; 81003; 81015; 82962; 83036; 84443; 85025; 85027; 87086; 87502; 87811; 93005; 96361; 96374; 97116; 97162; 99285

== ENCOUNTER → 2024-07-20 10:40 | Outpatient (REF) | payer OTHER, SELFPAY ==
[2024-07-20 11:25] LABS: % Basophils 0.6 % (0-2); % Eosinophils 4.6 % (0-6); % Immature Granulocytes 0.3 % (0-0.5); % Lymphocytes 15.7 % (20.5-51.1); % Monocytes 12.1 % (1.7-9.3); % Neutrophils 66.7 % (42.2-75.2); Absolute Eosinophils 0.3 10^3/uL (0-0.7); Absolute Monocytes 0.8 10^3/uL (0.1-0.6); Absolute Neutrophils 4.2 10^3/uL (1.4-6.5); Hematocrit 31.7 % (37.0-47.0); Hemoglobin 10.4 g/dL (12.0-16.0); Mean Corp Hgb Conc. 32.8 g/dL (33.0-37.0); Mean Corpuscular Hgb 32.1 pg (27.0-31.0); Mean Corpuscular Volume 97.8 fL (81.0-99.0); Nucleated Red Blood Cells % 0 %; Platelet Count 173 10^3/uL (130-400); Red Blood Cell Count 3.24 10^6/uL (4.20-5.40); Red Cell Dist. Width 13.6 % (11.5-14.5); White Blood Cell Count 6.4 10^3/uL (4.8-10.8)
[2024-07-20 11:39] LABS: Blood Urea Nitrogen 20 mg/dl (7-17); Calcium 8.8 mg/dl (8.4-10.2); Carbon Dioxide 28 mmol/L (22-30); Chloride 113 mmol/L (98-107); Glucose 104 mg/dl (70-99); Potassium 4.2 mmol/L (3.5-5.1); Sodium 145 mmol/L (135-145); eGFR 51.11
== END ==
LOC: OLABP 10:40
PROVIDERS: ATTENDING PHYSICIAN Family Medicine
DX: N39.0 Urinary tract infection, site not specified (principal); N17.9 Acute kidney failure, unspecified; E86.1 Hypovolemia; E03.9 Hypothyroidism, unspecified; E78.5 Hyperlipidemia, unspecified; E11.9 Type 2 diabetes mellitus without complications; F03.90 Unspecified dementia, unspecified severity, without behavioral disturbance, psychotic disturbance, mood disturbance, and anxiety
CPT/HCPCS: 36415; 80048; 85025

== ENCOUNTER 2024-08-03 19:35 | Emergency (ER) | payer OTHER, SELFPAY ==
[2024-08-03 19:38] VITALS: BP 150/52
[2024-08-03 19:39] VITALS: BP 150/52
[2024-08-03 19:49] LABS: Glucose - Point of Care 86 mg/dl (70-99)
[2024-08-03 20:00] VITALS: BP 134/52
[2024-08-03 20:00] LABS: % Basophils 0.7 % (0-2); % Eosinophils 3.1 % (0-6); % Immature Granulocytes 0.4 % (0-0.5); % Lymphocytes 15.5 % (20.5-51.1); % Monocytes 12.9 % (1.7-9.3); % Neutrophils 67.4 % (42.2-75.2); Absolute Basophils 0.1 10^3/uL (0-0.2); Absolute Eosinophils 0.2 10^3/uL (0-0.7); Absolute Lymphocytes 1.2 10^3/uL (1.2-3.4); Absolute Neutrophils 5.1 10^3/uL (1.4-6.5); Hematocrit 36.5 % (37.0-47.0); Hemoglobin 12.3 g/dL (12.0-16.0); Mean Corp Hgb Conc. 33.7 g/dL (33.0-37.0); Mean Corpuscular Hgb 31.9 pg (27.0-31.0); Mean Corpuscular Volume 94.8 fL (81.0-99.0); Mean Platelet Volume 12.2 fL (7.4-10.4); Nucleated Red Blood Cells % 0 %; Platelet Count 169 10^3/uL (130-400); Red Blood Cell Count 3.85 10^6/uL (4.20-5.40); Red Cell Dist. Width 13.4 % (11.5-14.5); White Blood Cell Count 7.5 10^3/uL (4.8-10.8)
[2024-08-03 20:29] LABS: ALT (SGPT) 19 U/L (0-35); AST (SGOT) 29 U/L (14-36); Alkaline Phosphatase 40 U/L (38-126); Blood Urea Nitrogen 34 mg/dl (7-17); Calcium 8.9 mg/dl (8.4-10.2); Carbon Dioxide 23 mmol/L (22-30); Chloride 111 mmol/L (98-107); Glucose 91 mg/dl (70-99); Potassium 3.7 mmol/L (3.5-5.1); Sodium 143 mmol/L (135-145); Total Bilirubin 0.8 mg/dl (0.2-1.3); Total Protein 6.3 g/dl (6.3-8.2); eGFR 38.27
[2024-08-03 21:00] VITALS: BP 119/45
[2024-08-03 22:00] VITALS: BP 133/53
[2024-08-03 23:00] VITALS: BP 133/82
--- NOTE | 2024-08-03 23:09 | ED.GENMED ---
History of Present Illness
General
Chief Complaint: Change in Mental Status
Source: patient, records, family, previous radiology exam and previous hospital records
Exam Limitations: none
Time Seen by Provider: 08/03/24 22:47
Nursing documentation reviewed up to this point in time: agreed with
History of Present Illness
History of Present Illness:
78-year-old female from her memory care unit at [facility] apparently had some weakness, passed out after playing a game, lower extremity right feels weak compared to left recently admitted with UTI dehydration treated with fluids antibiotics
discharged to [facility]
Past History
Past History
ED Past Medical History: HTN, Hypercholesterolemia, Hypothyroidism and Other ('skin lupus' 1.5 years ago)
ED Past Surgical History: Gynecological (Hysterectomy), Orthopedic (2 knee replacments (1 B/L)) and Other (B/L cataract resections; MRSA)
Social History
Tobacco: Non-smoker
Alcohol: None
Drug: None
Personal:
Living: with family
Employment: Retired
Family History
Family History: Other (reviewed and non-contributory)
Review of Systems
Review of Systems
All Other Systems: Not applicable
Constitutional: Denies fever or fatigue
EENT: Reports no symptoms
Respiratory: Reports no symptoms
Cardiac: Reports no symptoms
ABD/GI: Denies abdominal pain
: Reports no symptoms
Neurological: Reports weakness
Phy Exam
Physical Exam
Physical Exam:
Physical Exam
General: no apparent distress, not acutely ill
Neck: No jaundice
Heart: s1/s2 regular rate and rhythm, no murmur. equal radial pulses.
Lungs: no acute respiratory distress. clear bilaterally
Abdomen: Nontender
Neuro: Globally weak, moves all extremity
Skin: no rash
Psychiatric: Flat affect
Extremities: no edema.
Course
Orders/Labs/Results
Orders:
Orders
08/03/24 19:44
Electrocardiogram (*1) Urgent
Reason for Study: Other
Other Reason for Exam: change in mental status
08/03/24 19:45
Bedside Glucose- Treatment ONCE
EKG- Treatment ONCE
08/03/24 19:51
CMP [Comprehensive Metabolic Panel] Urgent
Complete Blood Count/With Diff Urgent
08/03/24 22:49
CT Head W/o Iv Contrast Urgent
Comment:
Reason For Exam: weakness
08/03/24 23:19
Straight cath- Treatment ONCE
08/03/24 23:40
Urinalysis Reflex To Culture Urgent
Date Specimen was Collected: 08/03/24
Time Specimen was Collected: 23:35
Abnormal Lab Results
08/03/24
19:51
RBC 3.85 L 10^6/uL
(4.20-5.40)
Hct 36.5 L %
(37.0-47.0)
MCH 31.9 H pg
(27.0-31.0)
MPV 12.2 H fL
(7.4-10.4)
Absolute Monos (auto) 1.0 H 10^3/uL
(0.1-0.6)
Lymphocytes % 15.5 L %
(20.5-51.1)
Monocytes % 12.9 H %
(1.7-9.3)
Chloride 111 H mmol/L
(98-107)
BUN 34 H mg/dl
(7-17)
Creatinine 1.4 H mg/dL
(0.6-1.0)
08/03/24 19:51
08/03/24 19:51
Vital Signs
Initial and Last Documented VS:
Initial Vital Signs
Temp Pulse Resp BP Pulse Ox
97.6 F 67 19 150/52 100
08/03/24 19:38 08/03/24 19:38 08/03/24 19:38 08/03/24 19:38 08/03/24 19:38
Last Documented Vital Signs
Temp Pulse Resp BP Pulse Ox
97.6 F 70 18 133/82 99
08/03/24 19:38 08/03/24 23:00 08/03/24 23:00 08/03/24 23:00 08/03/24 23:09
MDM/Problems Addressed
Differential Diagnosis Includes:
Dehydration stroke dementia med effect UTI
MDM/Problems Addressed:
Weakness
Chronic conditions affecting care: Neurological disorder
Acute Exacerbation and/or Progression of Chronic Illness: Neurological disorder
*Radiology
Radiology exam reviewed: radiology read reviewed
*Pulse Oximetry
SaO2: 99
Oxygen Mode of Delivery: Room air
Patient hypoxic: no
*Critical Care Note
Total Time (30-74mins, 75-104mins- exclusive of procedures): Not Applicable
Update Note
Update Note:
[address] update labs noted [address] noted urine noted labs are too far from her baseline we will give her some p.o. or IV fluids with an eye towards sending her back to her facility
12:30 AM patient resting comfortably
ED Attending Note
-
Portions of this chart may have been created with voice recognition software.� Occasional wrong word or��sound alike� substitutions may have occurred due to the inherent limitations of voice recognition software.
Discharge Plan
Departure
Patient Disposition: Home (Routine Discharge)
Date of Disposition: 08/04/24
Time of Disposition: 00:29
Patient with high blood pressure during this ER visit?: No
Condition: Good
Discharge Problem:
Weakness
Instructions: Weakness - ED discharge instructions, Weakness
Prescriptions:
No Action
atorvastatin 20 MG tablet
20 mg PO HS
hydroxychloroquine 200 MG tablet
400 mg PO DAILY
metformin 500 mg Tablet
500 mg PO BID
galantamine 4 mg Tablet
8 mg PO BID
therapeutic multivitamin Tablet
1 tab PO DAILY
clopidogrel [Plavix] 75 mg Tablet
75 mg PO DAILY
levothyroxine 150 mcg Tablet
150 mcg PO DAILY
furosemide [Lasix] 20 mg Tablet
20 mg PO DAILY
losartan 100 mg Tablet
100 mg PO DAILY
memantine 10 mg Tablet
10 mg PO BID
miconazole nitrate [Miconazorb AF] 2 % Powder
1 applic topical BID Qty: 85 0RF
cefdinir 300 mg capsule
300 mg PO Q12H 4 Days Qty: 8 0RF
Referrals:
Anshu Ku MD [Family Provider, Internal Medicine]
Interventions
Interventions:
*Risk Screen - Suicide Last Done: 08/03/24 19:38
*General Assessment Last Done: 08/03/24 19:38
*Neglect/Abuse Screening Last Done: 08/03/24 19:38
*ED- Fall Risk Assessment Last Done: 08/03/24 19:38
*ED COVID-19 Vaccine History Last Done: 08/03/24 19:45
ED- Neurological Assessment Last Done: 08/03/24 21:58
Discharge Date and Time
Print Language: K[place]ILI
[2024-08-03 23:53] LABS: Urine Albumin Negative (Neg - Trace); Urine Bilirubin Negative (Negative); Urine Character Clear (Clear); Urine Color Yellow; Urine Glucose Negative (Negative); Urine Ketone Negative (Negative); Urine Leukocyte Negative (Negative); Urine Nitrite Negative (Negative); Urine Occult Blood Negative (Negative); Urine Urobilinogen Negative (Neg - 1+)
[2024-08-04] VITALS: BP 129/57
[2024-08-04 01:00] VITALS: BP 129/56
[2024-08-04 02:00] VITALS: BP 126/51
== END 2024-08-04 04:15 | disposition home or self-care (01) ==
LOC: EMR 19:35
PROVIDERS: Emergency Medicine; EMERGENCY PHYSICIAN Emergency Medicine; FAMILY PHYSICIAN Internal Medicine Geriatric Medicine
DX: R53.1 Weakness (principal); E03.9 Hypothyroidism, unspecified; E78.00 Pure hypercholesterolemia, unspecified; I10 Essential (primary) hypertension
CPT/HCPCS: 99284; 70450; 80053; 81003; 82962; 85025; 93005

== ENCOUNTER 2024-08-15 09:44 | Emergency (ER) | payer OTHER, SELFPAY ==
[2024-08-15] VITALS (7 sets, daily range): BP systolic 141–164; BP diastolic 58–69
--- NOTE | 2024-08-15 09:59 | ED.GENMED ---
History of Present Illness
General
Chief Complaint: Change Level of Consciousness
Source: patient
Exam Limitations: none
Time Seen by Provider: 08/15/24 09:57
History of Present Illness
History of Present Illness:
See MDM
Past History
Past History
ED Past Medical History: HTN, Hypercholesterolemia, Hypothyroidism and Other ('skin lupus' 1.5 years ago)
ED Past Surgical History: Gynecological (Hysterectomy), Orthopedic (2 knee replacments (1 B/L)) and Other (B/L cataract resections; MRSA)
Social History
Tobacco: Non-smoker
Alcohol: None
Drug: None
Personal:
Living: with family
Employment: Retired
Family History
Family History: Other (reviewed and non-contributory)
Phy Exam
Physical Exam
Physical Exam:
See MDM
Course
Orders/Labs/Results
Orders:
Orders
08/15/24 10:11
Complete Blood Count/With Diff Urgent
Comprehensive Metabolic Panel Urgent
Urinalysis Reflex To Culture Urgent
Date Specimen was Collected: 08/15/24
Time Specimen was Collected: 10:10
Abnormal Lab Results
08/15/24
10:11
RBC 3.57 L 10^6/uL
(4.20-5.40)
Hgb 11.6 L g/dL
(12.0-16.0)
Hct 34.0 L %
(37.0-47.0)
MCH 32.5 H pg
(27.0-31.0)
MPV 11.8 H fL
(7.4-10.4)
Absolute Monos (auto) 0.8 H 10^3/uL
(0.1-0.6)
Lymphocytes % 18.0 L %
(20.5-51.1)
Monocytes % 11.0 H %
(1.7-9.3)
BUN 23 H mg/dl
(7-17)
Glucose 103 H mg/dl
(70-99)
Total Protein 5.7 L g/dl
(6.3-8.2)
08/15/24 10:11
08/15/24 10:11
Vital Signs
Initial and Last Documented VS:
Initial Vital Signs
Pulse Resp Pulse Ox
93 25 99
08/15/24 09:47 08/15/24 09:47 08/15/24 09:47
Last Documented Vital Signs
Temp Pulse Resp BP Pulse Ox
98.8 F 62 16 164/67 99
08/15/24 09:48 08/15/24 10:09 08/15/24 10:09 08/15/24 10:09 08/15/24 10:09
MDM/Problems Addressed
Differential Diagnosis Includes:
HPI and MDM Narrative:
The patient is a 78-year-old female who was reported to be nonverbal and interacting minimally with the staff this morning. Upon the spouses arrival, it was noted that she typically exhibits this behavior, and previous similar episodes have led to
unnecessary hospital visits without yielding significant findings. When asked about pain or discomfort, the patient did not indicate that anything was bothering her.
Will obtain basic blood work and urinalysis
Physical exam
General: Well appearing and non-toxic. Lying in bed comfortably
HEENT: protecting airway
Neck: appears supple
CV: No evidence of cyanosis. Regular rate and rhythm
Resp: No accessory muscle use. Lungs clear
Abd: Non-distended. Soft and nontender
Extremities: No deformities
Neuro: alert
Psych: Normal affect
Skin: Intact
Problems Addressed including Acute and Chronic Conditions affecting care:
1. Decreased responsiveness
Acuity: acute
Prognosis: stable
Details: Per , apparently this is somewhat normal behavior for patient. Will obtain basic blood work and urinalysis
Differential Diagnosis (but not limited to): Dehydration, urinalysis, hyponatremia
Testing considered: CT head
Drug therapy (if applicable): OTC meds, please see d/c instruction regarding Rx drugs
Amount and/or Complexity of Data Reviewed
Clinical info obtained from: Patient
External data reviewed: N/A
Labs I independently reviewed (but not limited to): UA neg
Radiology: N/A
Pulse Ox: not hypoxic
EKG independently reviewed: N/A
Tariff Inspector: N/A
Critical Care: N/A
Risk of Complication:
Social Determinants of health: Good social support
Discussed with other providers: N/A
Escalation of Care includes Admit/Obs: After being observed in the Emergency Department, pt stable for discharge.
Occasional wrong word or 'sound a like' substitutions may have occurred due to the inherent limitations of voice recognition software. Read the chart carefully and recognize, using context, where substitutions have occurred.
*Pulse Oximetry
Patient hypoxic: no
*Critical Care Note
Total Time (30-74mins, 75-104mins- exclusive of procedures): Not Applicable
ED Attending Note
-
Portions of this chart may have been created with voice recognition software.� Occasional wrong word or��sound alike� substitutions may have occurred due to the inherent limitations of voice recognition software.
Discharge Plan
Departure
Patient Disposition: Home (Routine Discharge)
Date of Disposition: 08/15/24
Time of Disposition: 10:57
Patient with high blood pressure during this ER visit?: Yes
Discharge Problem:
Decreased responsiveness
Prescriptions:
No Action
atorvastatin 20 MG tablet
20 mg PO HS
hydroxychloroquine 200 MG tablet
400 mg PO DAILY
metformin 500 mg Tablet
500 mg PO BID
galantamine 4 mg Tablet
8 mg PO BID
therapeutic multivitamin Tablet
1 tab PO DAILY
clopidogrel [Plavix] 75 mg Tablet
75 mg PO DAILY
levothyroxine 150 mcg Tablet
150 mcg PO DAILY
furosemide [Lasix] 20 mg Tablet
20 mg PO DAILY
losartan 100 mg Tablet
100 mg PO DAILY
memantine 10 mg Tablet
10 mg PO BID
miconazole nitrate [Miconazorb AF] 2 % Powder
1 applic topical BID Qty: 85 0RF
cefdinir 300 mg capsule
300 mg PO Q12H 4 Days Qty: 8 0RF
Referrals:
Anshu Ku MD [Family Provider, Internal Medicine]
Activity Restrictions/Additional Instructions:
Please return for any worsening symptoms.
You may return at any time if you have further concerns.
Please follow up with your doctor at the first available appointment, preferably this week.
Thank you for choosing [facility].
Interventions
Interventions:
*Risk Screen - Suicide Last Done: 08/15/24 09:48
*General Assessment Last Done: 08/15/24 09:48
*Neglect/Abuse Screening Last Done: 08/15/24 09:48
*ED COVID-19 Vaccine History Last Done: 08/15/24 09:48
ED- Cardiac Assessment Last Done: 08/15/24 10:05
ED- Neurological Assessment Last Done: 08/15/24 10:05
ED-Psychological Assessment Last Done: 08/15/24 10:05
ED- Pulmonary Assessment Last Done: 08/15/24 10:05
Discharge Date and Time
Print Language: MOHAWK
[2024-08-15 10:30] LABS: Hematocrit 34.0 % (37.0-47.0); Hemoglobin 11.6 g/dL (12.0-16.0); Mean Corp Hgb Conc. 34.1 g/dL (33.0-37.0); Mean Corpuscular Volume 95.2 fL (81.0-99.0); Nucleated Red Blood Cells % 0 %; Platelet Count 171 10^3/uL (130-400); Red Cell Dist. Width 13.0 % (11.5-14.5)
[2024-08-15 10:48] LABS: ALT (SGPT) 17 U/L (0-35); AST (SGOT) 27 U/L (14-36); Albumin 3.7 g/dl (3.5-5.0); Alkaline Phosphatase 39 U/L (38-126); Blood Urea Nitrogen 23 mg/dl (7-17); Calcium 8.9 mg/dl (8.4-10.2); Carbon Dioxide 28 mmol/L (22-30); Chloride 107 mmol/L (98-107); Glucose 103 mg/dl (70-99); Potassium 4.4 mmol/L (3.5-5.1); Sodium 139 mmol/L (135-145); Total Protein 5.7 g/dl (6.3-8.2); eGFR 57.31
[2024-08-15 10:49] LABS: Urine Character Clear (Clear)
--- NOTE | 2024-08-15 11:15 | EDRN ---
Report given to JAKE Lopez at [facility]. Waiting for Acute Care to roller picker the patient
--- NOTE | 2024-08-15 13:15 | EDRN ---
Report given to Acute Care staff.
== END 2024-08-15 13:15 ==
LOC: EMR 09:44
PROVIDERS: EMERGENCY PHYSICIAN Student in an Organized Health Care Education/Training Program; FAMILY PHYSICIAN Internal Medicine Geriatric Medicine
DX: R41.82 Altered mental status, unspecified (principal); E78.00 Pure hypercholesterolemia, unspecified; E03.9 Hypothyroidism, unspecified; I10 Essential (primary) hypertension
CPT/HCPCS: 99283; 80053; 81003; 85025

== ENCOUNTER 2024-08-27 07:48 | Emergency (ER) | payer OTHER, SELFPAY ==
[2024-08-27 07:53] VITALS: BP 150/72
[2024-08-27 07:57] VITALS: BP 150/72
--- NOTE | 2024-08-27 07:59 | ED.GENMED ---
History of Present Illness
General
Chief Complaint: Change in Mental Status
Time Seen by Provider: 08/27/24 07:59
History of Present Illness
History of Present Illness:
TIME OF INITIAL EVALUATION
-
REVIEW OF OLD RECORDS
- The patient has history of dementia, high blood pressure. The patient was seen here with a decreased level of consciousness 12 days ago. At that time it was documented that she was minimally interactive with staff but then when her came
she became more appropriate with her mental status. At that time CBC and chemistries were unremarkable. The patient had 3 CTs of the head since this past May.
Apparently, this presentation happens frequently and the did not even want the patient to be brought out to the hospital for the same situation again. Of note, I tried to call the but there was no answer.
Note:
CHIEF COMPLAINT(S)
Patient found on the floor, non-communicative.
HISTORY OF PRESENT ILLNESS
The patient is a 78-year-old female who was brought to the Emergency Department via ambulance after being found on the floor. This has been a recurring situation where she is found on the floor and sent for evaluation. Upon arrival, the patients
was noted to be frustrated with the frequent evaluations. There was no resistance or vocalization of pain when the patient was being undressed for examination. Her blood glucose level was recorded at 104 mg/dL, indicating no immediate
hypoglycemia or hyperglycemia concern.
ADDITIONAL HISTORY OBTAINED FROM SOURCES OTHER THAN THE PATIENT
According to EMS, the patient was found on the floor and was unresponsive to conversation. She was brought in for evaluation without specific paperwork detailing her history or situation.
PHYSICAL EXAM
-General: The patient primarily keeps her eyes closed but occasionally opens them to command; there is no evidence of craniofacial trauma
-HEENT: Moist oral mucosa
-Cardiovascular: Regular rate and rhythm
-Pulmonary: No respiratory distress, breathing is nonlabored, equal and clear breath sounds
-Abdomen: Soft and nontender with no peritoneal signs
-Neurologic: Moves all extremities equally, remains nonverbal currently, strong response to sternal rub
-Extremities: Surgical scar noted to the anterior aspect of the right knee
-Psychiatric: Very limited historian, refuses to answer questions, she is not interactive with examination but does not resist
PLAN
The plan includes sending a urine sample for analysis to rule out any urinary infections or abnormalities as a potential cause for her condition.
DIFFERENTIAL DIAGNOSIS
The Differential Diagnosis includes, in no particular order and is not limited to:
Suspect behavioral disturbance
1. Urinary tract infection
2. Transient ischemic attack
3. Hypoglycemia
4. Orthostatic hypotension
5. Dehydration
6. Vasovagal syncope
7. Cardiac arrhythmia
8. Cerebrovascular accident
9. Cognitive impairment related to dementia
10. Electrolyte imbalance
RADIOLOGY
- The patient has had 3 CTs recently�will hold off on additional imaging
EKG
-
LABS
- White count is normal, hemoglobin is near baseline, electrolytes unremarkable, minimal renal insufficiency but near baseline, glucose normal, urinalysis does suggest the possibility of a urinary tract infection however of note, the patient has had
several urinalyses that have showed increased number of white cells and under this other times, the urine culture suggested more of a contaminated specimen, will await urine culture
UPDATE
- I attempted to call the , Juan F, at 8:10 AM however there was no answer
- I spoke to EMS who indicates that staff thought maybe she had some shoulder discomfort however this is not clearly apparent on evaluation here in the Emergency Department
SUMMARY OF ENCOUNTER
The patient, a 78-year-old female, was seen in the emergency department after being found on the floor and non-communicative. This is a recurring situation as she has similar presentations to the emergency department over the last several months.
Upon evaluation, the patient was alert, responsive to light touch, and able to communicate slightly. Her presentation is suspected to have more of a behavioral etiology. Routine investigations were undertaken, including testing for possible urinary
tract infection (UTI), although there is low clinical suspicion of UTI as the main cause. No additional CT imaging was ordered due to recent previous normal results.
REASSESSMENT
The patient was reassessed at 9:10 a.m. and was found to be resting comfortably, responding to stimuli, and verbally engaging.
PLAN
Await results from the urine culture to evaluate the possibility of a urinary tract infection.
ADDITIONAL TESTING AND IMAGING CONSIDERED
Additional CT imaging was considered but ultimately not ordered due to recent normal CT results.
MEDICAL DECISION MAKING
-Complexity of Data Reviewed: The patient has shown recurring episodes of non-responsiveness and falls, with a suspicion that these may have a behavioral etiology. Differential diagnosis includes urinary tract infection, transient ischemic attack,
hypoglycemia, orthostatic hypotension, dehydration, vasovagal syncope, cardiac arrhythmia, cerebrovascular accident, cognitive impairment related to dementia, and electrolyte imbalance.
-Data:
Category 1
External record consulted: Recent normal CT scan results considered. Input obtained from EMS regarding patient�s condition upon initial discovery.
Category 2
Clinical information was obtained from an independent historian: EMS personnel provided details of the patient�s condition upon arrival.
-Risk:
Consideration of Admission/Observation: Escalation of care including admission/observation was considered given the complexity and risk of the patients presenting complaint, exam findings, and underlying comorbidities. However, ultimately, I feel
the patient is safe for outpatient management with close follow up. Reasoning: Work-up reassuring, does not reveal any acute life/organ threatening processes, patients symptoms well controlled upon reevaluation, reexamination is reassuring, vitals
are stable, patient agreeable with discharge, reliable for follow-up.
DIAGNOSIS
Assessment points towards a potential behavioral etiology with considerations of underlying medical conditions such as dementia or urinary tract infection. Further diagnostics pending urine culture results.
Past History
Past History
ED Past Medical History: HTN, Hypercholesterolemia, Hypothyroidism and Other ('skin lupus' 1.5 years ago)
ED Past Surgical History: Gynecological (Hysterectomy), Orthopedic (2 knee replacments (1 B/L)) and Other (B/L cataract resections; MRSA)
Social History
Tobacco: Non-smoker
Alcohol: None
Drug: None
Personal:
Living: with family
Employment: Retired
Family History
Family History: Other (reviewed and non-contributory)
Phy Exam
Physical Exam
Physical Exam:
See HPI
Course
Orders/Labs/Results
Orders:
Orders
08/27/24 08:12
Urinalysis Reflex To Culture Urgent
Date Specimen was Collected: 08/27/24
Time Specimen was Collected: 08:08
Urine Microscopic Reflex Cult Urgent
Urine Culture Urgent
JESSIE Source: U
Specimen Description:
Date Specimen was Collected: 08/27/24
Time Specimen was Collected: 08:08
08/27/24 08:13
0.9% Sodium Chloride 500 ml [Nss] 500 ml IV BOLUS
08/27/24 08:20
Basic Metabolic Panel Urgent
Complete Blood Count/With Diff Urgent
Abnormal Lab Results
08/27/24 08/27/24
08:12 08:20
RBC 3.47 L 10^6/uL
(4.20-5.40)
Hgb 10.9 L g/dL
(12.0-16.0)
Hct 33.3 L %
(37.0-47.0)
MCH 31.4 H pg
(27.0-31.0)
MCHC 32.7 L g/dL
(33.0-37.0)
MPV 10.9 H fL
(7.4-10.4)
Absolute Lymphs (auto) 1.0 L 10^3/uL
(1.2-3.4)
Absolute Monos (auto) 0.7 H 10^3/uL
(0.1-0.6)
Lymphocytes % 15.6 L %
(20.5-51.1)
Monocytes % 10.8 H %
(1.7-9.3)
Chloride 109 H mmol/L
(98-107)
BUN 24 H mg/dl
(7-17)
Creatinine 1.1 H mg/dL
(0.6-1.0)
Glucose 117 H mg/dl
(70-99)
Leukocyte Esterase Rfl 3+ A
(Negative)
Urine WBC (Reflex) 40-50 A /HPF
(0-5)
Urine Bacteria (Reflex) Few A
(Negative)
Urine Albumin (Reflex) 1+ A
(Neg - Trace)
08/27/24 08:20
08/27/24 08:20
Vital Signs
Initial and Last Documented VS:
Initial Vital Signs
BP
150/72
08/27/24 07:53
Last Documented Vital Signs
Temp Pulse Resp BP Pulse Ox
36.4 C 72 24 141/51 99
08/27/24 07:57 08/27/24 09:00 08/27/24 09:00 08/27/24 09:00 08/27/24 09:00
*Pulse Oximetry
SaO2: 100
Oxygen Mode of Delivery: Room air
Patient hypoxic: no
*Critical Care Note
Total Time (30-74mins, 75-104mins- exclusive of procedures): Not Applicable
ED Attending Note
-
Portions of this chart may have been created with voice recognition software.� Occasional wrong word or��sound alike� substitutions may have occurred due to the inherent limitations of voice recognition software.
Discharge Plan
Departure
Prescriptions:
No Action
atorvastatin 20 MG tablet
20 mg PO HS
hydroxychloroquine 200 MG tablet
400 mg PO DAILY
metformin 500 mg Tablet
500 mg PO BID
galantamine 4 mg Tablet
8 mg PO BID
clopidogrel [Plavix] 75 mg Tablet
75 mg PO DAILY
levothyroxine 150 mcg Tablet
150 mcg PO DAILY
memantine 10 mg Tablet
10 mg PO BID
acetaminophen [Tylenol] 325 mg Tablet
650 mg PO Q4HPRN PRN (Reason: mild pain)
loperamide 2 mg Tablet
2 mg PO Q2HPRN PRN (Reason: diarrhea)
furosemide [Lasix] 20 mg Tablet
20 mg PO DAILY
melatonin 5 mg Tablet
5 mg PO HSPRN PRN (Reason: sleep)
miconazole nitrate [Miconazorb AF] 2 % powder
1 applic topical BID
Referrals:
Anshu Ku MD [Family Provider, Internal Medicine]
Interventions
Interventions:
*Risk Screen - Suicide Last Done: 08/27/24 07:59
*Neglect/Abuse Screening Last Done: 08/27/24 07:59
*ED- Fall Risk Assessment Last Done: 08/27/24 08:03
*ED COVID-19 Vaccine History Last Done: 08/27/24 08:03
ED- Pulmonary Assessment Last Done: 08/27/24 08:07
ED- Neurological Assessment Last Done: 08/27/24 08:03
ED- Cardiac Assessment Last Done: 08/27/24 08:07
ED Swallowing Screen Last Done: 08/27/24 08:31
Discharge Date and Time
Print Language: BELARUSIAN
[2024-08-27 08:00] VITALS: BP 142/58
[2024-08-27] MEDS: NSS 500 IV (08:28)
[2024-08-27 08:29] LABS: Hematocrit 33.3 % (37.0-47.0); Hemoglobin 10.9 g/dL (12.0-16.0); Mean Corp Hgb Conc. 32.7 g/dL (33.0-37.0); Mean Corpuscular Volume 96.0 fL (81.0-99.0); Nucleated Red Blood Cells % 0 %; Platelet Count 185 10^3/uL (130-400); Red Cell Dist. Width 13.1 % (11.5-14.5)
--- NOTE | 2024-08-27 08:30 | EDRN ---
Call to EMS to find this pt's long-term nursing paperwork ( MAR, PM)
[2024-08-27 08:34] LABS: Urine Character Clear (Clear)
[2024-08-27 08:41] LABS: Blood Urea Nitrogen 24 mg/dl (7-17); Calcium 9.0 mg/dl (8.4-10.2); Carbon Dioxide 28 mmol/L (22-30); Chloride 109 mmol/L (98-107); Glucose 117 mg/dl (70-99); Potassium 4.1 mmol/L (3.5-5.1); Sodium 139 mmol/L (135-145); eGFR 51.11
[2024-08-27 09:00] VITALS: BP 141/51
[2024-08-27 09:03] LABS: Urine Red Blood Cell 0-2 /HPF (0-2); Urine Squamous Cell 0-2 /LPF (Few)
[2024-08-27 09:04] LABS: Urine White Cell 40-50 /HPF (0-5)
[2024-08-27 10:00] VITALS: BP 128/61
== END 2024-08-27 11:01 | disposition home or self-care (01) ==
LOC: EMR 07:48
PROVIDERS: EMERGENCY PHYSICIAN Emergency Medicine; FAMILY PHYSICIAN Internal Medicine Geriatric Medicine
DX: R41.82 Altered mental status, unspecified (principal); F03.90 Unspecified dementia, unspecified severity, without behavioral disturbance, psychotic disturbance, mood disturbance, and anxiety; E78.00 Pure hypercholesterolemia, unspecified; E03.9 Hypothyroidism, unspecified; I10 Essential (primary) hypertension; Z90.710 Acquired absence of both cervix and uterus
CPT/HCPCS: 99283; 96360; 80048; 81003; 81015; 85025; 87086

== ENCOUNTER 2024-09-02 03:34 | Emergency (ER) | payer OTHER, SELFPAY ==
[2024-09-02 03:39] VITALS: BP 143/51
[2024-09-02 03:44] VITALS: BP 143/51
[2024-09-02 03:44] LABS: Glucose - Point of Care 110 mg/dl (70-99)
[2024-09-02 04:00] VITALS: BP 141/54
--- NOTE | 2024-09-02 04:04 | ED.GENMED ---
History of Present Illness
General
Chief Complaint: Fall
Source: patient
Exam Limitations: none
Time Seen by Provider: 09/02/24 03:42
Nursing documentation reviewed up to this point in time: agreed with
History of Present Illness
History of Present Illness:
Note:
CHIEF COMPLAINT(S)
Fall with possible memory issues.
HISTORY OF PRESENT ILLNESS
The patient is a 78-year-old female with a past medical history of severe dementia, hypertension, hyperlipidemia, who presents emergency department today following a fall. She does not recall the circumstances leading to the fall but confirms having
fallen. The onset of events is unclear, as the patient struggles with memory about the incident. She comes from the memory care unit at [facility]. She currently denies experiencing pain anywhere, including her head, abdomen, neck, or legs. She
denies pain in her upper extremities. There is no complaint of headaches or burning with urination. She has not had any nausea or vomiting. She does not feel ill. Patient repeatedly mentions her Juan F and reports that Juan F is waiting
for her. She is oriented to self and place. EMS reports that patient was found on the floor of her apartment in prone position and was less responsive than usual with keeping her eyes closed and not responding to EMS. Currently, she is opening
her eyes spontaneously. Did speak to staff from [place] only few he reports that they were doing the rounds and saw that patient had fallen and saw that her walker that she uses daily was not located anywhere near her bed. They saw her on the
ground. I was not able to get in contact with patient's son despite trying to call however alf staff states that patient had an appointment that she went to with her son yesterday to address ongoing issues regarding problems with
responsiveness at night and was diagnosed with sleep paralysis. Per alf staff, patient is at her cognitive baseline and they do not think she is altered at this time.
ROS
See HPI
PHYSICAL EXAM
- Nursing notes reviewed and vital signs reviewed.
General: Patient is well appearing and in no acute distress; non-toxic
Skin: Warm and dry, no rashes or lesions
Head: Normocephalic, atraumatic
Eyes: Sclera non-icteric. EOMs intact.
Neck: No midline spinal tenderness
Cardiac: Regular rate and rhythm, no murmurs, no tenderness palpation of the external chest wall
Peripheral Vascular: No lower extremity swelling or edema
Pulm: Normal respiratory effort, no wheezes, rales, rhonchi
Abdomen: No abdominal tenderness to palpation, no ecchymosis, no signs of trauma
Musculoskeletal: No tenderness palpation of the upper or lower extremities bilaterally, full range of motion
Neuro: CN II-XII intact, no focal neurologic deficits.
Psychiatric: Appropriate mood and affect.
PROBLEM LIST
- Acute: Fall
PLAN
- CT scan of the head and cervical spine
DIFFERENTIAL DIAGNOSIS
The Differential Diagnosis includes, in no particular order and is not limited to:
-Head trauma
-Dementia-related confusion
-Medication side effects
-Dehydration
-Hypoglycemia
-Infection
-Postural hypotension
CHART REVIEW
Reviewed previous ER physician documentation from 08/27/2024, reviewed ER physician documentation from 08/15/2024, reviewed this chart summary from 07/17/2024 patient seen for RENETTA and weakness likely secondary to UTI
MDM/disposition
The patient is a 78-year-old female with a past medical history of severe dementia, hypertension, hyperlipidemia, who presents emergency department today following a fall. EMS reports that she was found lying prone on the floor of her apartment and
apparently has a history of doing this frequently and refusing to open her eyes. Today, patient's is able to tell me that she fell and is at her cognitive baseline per alf staff. She denies any dizziness, lightheadedness, headaches, neck
pain, pain in her extremities. She denies feeling ill she denies any urinary symptoms. On physical exam she is well-appearing no acute distress she frequently mentions getting home to her Juan F. She is afebrile. She has no signs of
trauma. She went for CT scan of the head and cervical spine which were unremarkable. Do not feel patient is acutely altered from her baseline and do not feel that she needs a workup for altered mental status. I reviewed previous ER physician
documentation and patient has been seen and worked up multiple times for concerns of changes in responsiveness at night. I reviewed documentation from 08/27/2024 patient had unremarkable workup and it was thought that there is a behavioral etiology
rather than an acute medical etiology. Reviewed 08/15/2024 where patient was again seen for similar symptoms and there was concern about repeated unnecessary hospital visits without yielding significant findings. Your CT scans today were
unremarkable. Patient stable for discharge back to [facility].
Past History
Past History
ED Past Medical History: HTN, Hypercholesterolemia, Hypothyroidism and Other ('skin lupus' 1.5 years ago)
ED Past Surgical History: Gynecological (Hysterectomy), Orthopedic (2 knee replacments (1 B/L)) and Other (B/L cataract resections; MRSA)
Social History
Tobacco: Non-smoker
Alcohol: None
Drug: None
Personal:
Living: with family
Employment: Retired
Family History
Family History: Other (reviewed and non-contributory)
Phy Exam
Physical Exam
Physical Exam:
see hpi
Course
Orders/Labs/Results
Orders:
Orders
09/02/24 03:54
CT Cervical Spine W/o Iv Contr Urgent
Comment:
Reason For Exam: found prone on the floor, hx dementia
CT Head W/o Iv Contrast Urgent
Comment:
Reason For Exam: found prone on the floor, hx dementia
Abnormal Lab Results
09/02/24
03:41
POC Glucose 110 H mg/dl
(70-99)
Vital Signs
Initial and Last Documented VS:
Initial Vital Signs
Temp Pulse Resp BP Pulse Ox
97.6 F 79 14 143/51 99
09/02/24 03:39 09/02/24 03:39 09/02/24 03:39 09/02/24 03:39 09/02/24 03:39
Last Documented Vital Signs
Temp Pulse Resp BP Pulse Ox
97.6 F 72 16 118/51 99
09/02/24 03:39 09/02/24 06:15 09/02/24 06:15 09/02/24 06:00 09/02/24 06:00
*Pulse Oximetry
SaO2: 100
Oxygen Mode of Delivery: Room air
Patient hypoxic: no
*Critical Care Note
Total Time (30-74mins, 75-104mins- exclusive of procedures): Not Applicable
ED Attending Note
-
Portions of this chart may have been created with voice recognition software.� Occasional wrong word or��sound alike� substitutions may have occurred due to the inherent limitations of voice recognition software.
Discharge Plan
Departure
Patient Disposition: Home (Routine Discharge)
Date of Disposition: 09/02/24
Time of Disposition: 06:20
Patient with high blood pressure during this ER visit?: Yes
Condition: Good
Discharge Problem:
Fall, Sleep paralysis
Instructions: Preventing falls in adults, BLOOD PRESSURE
Prescriptions:
No Action
atorvastatin 20 MG tablet
20 mg PO HS
hydroxychloroquine 200 MG tablet
400 mg PO DAILY
metformin 500 mg Tablet
500 mg PO BID
galantamine 4 mg Tablet
8 mg PO BID
clopidogrel [Plavix] 75 mg Tablet
75 mg PO DAILY
levothyroxine 150 mcg Tablet
150 mcg PO DAILY
memantine 10 mg Tablet
10 mg PO BID
acetaminophen [Tylenol] 325 mg Tablet
650 mg PO Q4HPRN PRN (Reason: mild pain)
loperamide 2 mg Tablet
2 mg PO Q2HPRN PRN (Reason: diarrhea)
furosemide [Lasix] 20 mg Tablet
20 mg PO DAILY
melatonin 5 mg Tablet
5 mg PO HSPRN PRN (Reason: sleep)
miconazole nitrate [Miconazorb AF] 2 % powder
1 applic topical BID
Referrals:
UNKNOWN - PT DOES,NOT KNOW [Family Provider]
Activity Restrictions/Additional Instructions:
Please follow-up with your primary care provider.
Your CT scans today did not show any evidence of acute intracranial abnormality specifically no acute hemorrhage or herniation. Your CT scan of the cervical spine showed no fracture. Please follow-up with your primary care provider in 1 week.
PLEASE RETURN TO THE EMERGENCY DEPARTMENT SHOULD YOU DEVELOP DIZZINESS, LIGHTHEADEDNESS, HEADACHES, NAUSEA OR VOMITING, CHEST PAIN, SHORTNESS OF BREATH, OR ANY OTHER SIGNS OR SYMPTOMS WORRISOME TO YOU.
Interventions
Interventions:
*Risk Screen - Suicide Last Done: 09/02/24 06:35
*General Assessment Last Done: 09/02/24 03:39
*Neglect/Abuse Screening Last Done: 09/02/24 03:39
*ED- Fall Risk Assessment Last Done: 09/02/24 03:39
*ED COVID-19 Vaccine History Last Done: 09/02/24 06:35
*Nursing Disposition Last Done: 09/02/24 06:35
ED-Musculoskeletal Assessment Last Done: 09/02/24 03:50
ED- Neurological Assessment Last Done: 09/02/24 03:50
ED-Skin Assessment Last Done: 09/02/24 03:50
Discharge Date and Time
Discharge Date/Time: 09/02/24 06:35
Print Language: [place] CITIZ[place]
[2024-09-02 05:00] VITALS: BP 110/52
[2024-09-02 06:00] VITALS: BP 118/51
== END 2024-09-02 06:35 | disposition home or self-care (01) ==
LOC: EMR 03:34
PROVIDERS: EMERGENCY PHYSICIAN Student in an Organized Health Care Education/Training Program
DX: G47.8 Other sleep disorders (principal); W19.XXXA Unspecified fall, initial encounter; Y92.89 Other specified places as the place of occurrence of the external cause; F03.C18 Unspecified dementia, severe, with other behavioral disturbance; I10 Essential (primary) hypertension; E78.00 Pure hypercholesterolemia, unspecified; E03.9 Hypothyroidism, unspecified; I34.1 Nonrheumatic mitral (valve) prolapse; M19.90 Unspecified osteoarthritis, unspecified site; Z96.653 Presence of artificial knee joint, bilateral; Z85.828 Personal history of other malignant neoplasm of skin; Z86.14 Personal history of Methicillin resistant Staphylococcus aureus infection; Z79.02 Long term (current) use of antithrombotics/antiplatelets
CPT/HCPCS: 99284; 70450; 72125; 82962

== ENCOUNTER → 2024-09-08 08:00 | Outpatient (REF) | payer OTHER, SELFPAY ==
[2024-09-08 17:10] LABS: Urine Character Clear (Clear)
[2024-09-08 17:30] LABS: Urine Red Blood Cell 0-2 /HPF (0-2); Urine White Cell 40-50 /HPF (0-5)
== END ==
LOC: OLABLV 08:00
PROVIDERS: ATTENDING PHYSICIAN Internal Medicine Geriatric Medicine
DX: R39.9 Unspecified symptoms and signs involving the genitourinary system (principal)
CPT/HCPCS: 81003; 81015; 87077; 87086; 87186

== ENCOUNTER 2024-09-13 23:17 | Observation (INO) | payer OTHER, SELFPAY ==
[2024-09-13] VITALS (7 sets, daily range): BP systolic 114–164; BP diastolic 46–65
[2024-09-13 15:41] LABS: Hematocrit 33.3 % (37.0-47.0); Hemoglobin 11.2 g/dL (12.0-16.0); Mean Corp Hgb Conc. 33.6 g/dL (33.0-37.0); Mean Corpuscular Volume 95.1 fL (81.0-99.0); Nucleated Red Blood Cells % 0 %; Platelet Count 172 10^3/uL (130-400); Red Cell Dist. Width 13.0 % (11.5-14.5)
[2024-09-13 16:04] LABS: Urine Character Clear (Clear)
[2024-09-13 16:10] LABS: ALT (SGPT) 18 U/L (0-35); AST (SGOT) 29 U/L (14-36); Albumin 3.9 g/dl (3.5-5.0); Alkaline Phosphatase 41 U/L (38-126); Blood Urea Nitrogen 28 mg/dl (7-17); Calcium 9.1 mg/dl (8.4-10.2); Carbon Dioxide 25 mmol/L (22-30); Chloride 109 mmol/L (98-107); Estimated Creatinine Clearance 38 ml/min; Glucose 98 mg/dl (70-99); Potassium 4.2 mmol/L (3.5-5.1); Sodium 140 mmol/L (135-145); Total Protein 6.1 g/dl (6.3-8.2); eGFR 51.11
--- NOTE | 2024-09-13 16:16 | EDRN ---
When patient is not observed from in front of her, patient can be seen looking around the room then when directly addressed closes eyes but can still be seen through eyelashes looking and blinking. Patient is uncooperative with assessment and will
not answer questions. Patient is in no distress.
--- NOTE | 2024-09-13 16:26 | ED.GENMED ---
History of Present Illness
<Verena Barclay PA-C - Last Filed: 09/14/24 11:08>
General
Chief Complaint: Change in Mental Status
Source: family and ambulance crew
Exam Limitations: clinical condition and dementia
Time Seen by Provider: 09/13/24 16:03
Nursing documentation reviewed up to this point in time: agreed with
History of Present Illness
History of Present Illness:
78-year-old female with a history of dementia, hypertension, hyperlipidemia, UTIs presents for being found on the ground by residential staff where she resides at [facility] which is a dementia or memory care unit
She is currently with her eyes closed and not responding to commands or pain. Apparently she has been seen here several times for this type of behavior which seems to be related to her dementia. Her I did speak with her son Waldo who said that
her family doctor recently said it is probably sleep paralysis and that they agreed with the residential not to send her for behavior like this is a change in mental status but when the patient was found on the ground they did not know if she may
have had trauma so that is why they sent her. Patient has bruising to her chest wall and her son believes that this may have been from sternal rubs over the last several weeks she has been having these episodes.Apparently she recently started some
unknown antibiotic for UTI however this is not on her MAR. But her son says she just complained of burning with urination and she should be on an antibiotic
Patient was seen on 7�17 and then again 7�23 both with the same description of symptoms where she is unresponsive
Past History
<Verena Barclay PA-C - Last Filed: 09/14/24 11:08>
Past History
ED Past Medical History: HTN, Hypercholesterolemia, Hypothyroidism and Other ('skin lupus' 1.5 years ago)
ED Past Surgical History: Gynecological (Hysterectomy), Orthopedic (2 knee replacments (1 B/L)) and Other (B/L cataract resections; MRSA)
Social History
Tobacco: Non-smoker
Alcohol: None
Drug: None
Personal:
Living: with family
Employment: Retired
Family History
Family History: Other (reviewed and non-contributory)
Review of Systems
<Sandra Brennan PA-C - Last Filed: 09/14/24 02:28>
Review of Systems
All Other Systems: ROS reviewed and negative except as documented in HPI and ROS
Phy Exam
<Verena Barclay PA-C - Last Filed: 09/14/24 11:08>
Physical Exam
Physical Exam:
GENERAL: asleep, eyes closed, does not arouse easily; opens eyes to slits but otherwise not reponsive; when not being observed, she does open her eyes apparently
HEAD: NCAT
NECK in ca collar
EYE: when i physically open pt's eyes, she resists; pupils equal and reactive, EOMs intact.
ENT: o/p clr, mmm. no hemotympanum
CARDIAC: Regular rate and rhythm, no edema
LUNGS: Clear breath sounds bilaterally, no acute respiratory distress, no wheezes/rales/rhonchi
ABDOMEN: Soft, without focal tenderness, no r/g, no cvat
NEUROLOGICAL: Alert and oriented, no focal neuro deficits, CN intact, 5/5 strength, sensation intact
SKIN: Warm and dry, bruising anterior chest wall sternum region, yellowish; small bruise to L posterior shoulder
MUSCULOSKELETAL: No edema, well perfused.
i can range both hips normally
PSYCH: not responding to verbal commands
Course
<Verena Barclay PA-C - Last Filed: 09/14/24 11:08>
Orders/Labs/Results
Orders:
Orders
09/13/24 15:28
EKG [Electrocardiogram (*1)] Urgent
Reason for Study: Chest Pain
EKG- Treatment ONCE
09/13/24 15:35
Complete Blood Count/With Diff Urgent
Comprehensive Metabolic Panel Urgent
Urinalysis Reflex To Culture Urgent
Date Specimen was Collected: 09/13/24
Time Specimen was Collected: 15:28
Urine Microscopic Reflex Cult Urgent
Urine Culture Urgent
JESSIE Source: U
Specimen Description:
Obtained by: Random
Date Specimen was Collected: 09/13/24
Time Specimen was Collected: 15:28
09/13/24 16:20
CT Cervical Spine W/o Iv Contr Urgent
Comment:
Reason For Exam: found on floor dementia
CT Head W/o Iv Contrast Urgent
Comment:
Reason For Exam: found on floor
09/13/24 16:23
CT Chest W/o Iv Contrast Urgent
Comment:
Reason For Exam: chest bruising
09/13/24 22:58
Admit/Transfer Patient As Directed
Co-Sign Provider:
Level of Care: Observation services
Assign to:: Telemetry
Physician / Group: Rayna
Diagnosis: Change in Mental Status
Reason for Telemetry: Syncope
Date to Stop Telemetry: 09/15/24
Time to Stop Telemetry: 11:00
09/13/24 22:59
PRN Pain Medication Management As Directed
May give lesser potent ordered pain med per pt: Yes
preference::
Protocol:: Medication orders for pain may be administered in a
manner that supports deferring to patient preference
when the pt is:
- Requesting an ordered lesser potent pain medication.
Least to most potent pain medications are defined
as: acetaminophen < NSAID < tramadol < opioids
(morphine, oxycodone, hydromorphone).
- Requesting a lesser dose of the same medication IF
ORDERED.
- Requesting a less intrusive route of administration
if both routes are prescribed by the provider (PO <
IV).
09/13/24 23:00
Code Status As Directed
Resuscitation Status: Do not resuscitate
Reached after discussion with pt or family/Healthcare POA: Yes
09/13/24 23:01
DNR Bracelet Application ONCE
09/14/24 01:12
Acetaminophen [Tylenol] 650 mg PO Q4HPRN PRN
Dextrose 50%-Water [Dextrose 50% Syringe] 12.5 grams IV [id number] PRN
Glucagon [GlucaGen] 1 mg IM PRN PRN
Heparin 5,000 units SC Q8
Melatonin 5 mg PO HSPRN PRN sleep
09/14/24 01:12
Activity As Directed
Activity Level: Out of Bed- Chair
With Assistance
Bedside Glucose Monitoring As Directed
Frequency: AC&HS
Additional Instructions:: Change to q6h if pt on TPN, tube feeding or not eating
Orthostatic Vital Signs As Directed
Orthostatic VS Frequency: BID
Vital Signs As Directed
Frequency: Per unit guidelines
Pt Eval And Treat Routine
Activity Level: Out of Bed-Early Mobility
With Assistance
Speech Therapy Eval & Treat Routine
DX Deep Vein Thrombosis Video Routine
09/14/24 Breakfast
NPO
Allow oral meds: Yes
Allow clear liquids: Sips of Clears
Comment: Allows med and sips if patient is alert
Levothyroxine [Synthroid] 150 mcg PO DAILY @ 0600
09/14/24 06:43
Basic Metabolic Panel IN AM
Complete Blood Count/No Diff IN AM
Glycohemoglobin (HgbA1c) IN AM
Magnesium IN AM
TSH Reflex To Free T4 IN AM
09/14/24 07:30
Insulin Aspart Corrective Low [Novolog Flexpen-Low Resistance] See Protocol SC AC
09/14/24 08:00
Cephalexin Monohydrate [Keflex] 500 mg PO BID
Clopidogrel Bisulfate [Plavix] 75 mg PO DAILY
Furosemide [Lasix] 20 mg PO DAILY
Galantamine [Razadyne] 8 mg PO BID
Hydroxychloroquine [Plaquenil] 400 mg PO DAILY
Memantine HCl [Namenda] 10 mg PO BID
09/14/24 22:00
Atorvastatin [Lipitor] 20 mg PO HS
09/15/24 11:00
DC Protocol for Telemetry ONCE
Abnormal Lab Results
09/13/24
15:35
RBC 3.50 L 10^6/uL
(4.20-5.40)
Hgb 11.2 L g/dL
(12.0-16.0)
Hct 33.3 L %
(37.0-47.0)
MCH 32.0 H pg
(27.0-31.0)
MPV 10.9 H fL
(7.4-10.4)
Absolute Monos (auto) 0.8 H 10^3/uL
(0.1-0.6)
Monocytes % 12.8 H %
(1.7-9.3)
Chloride 109 H mmol/L
(98-107)
BUN 28 H mg/dl
(7-17)
Creatinine 1.1 H mg/dL
(0.6-1.0)
Total Protein 6.1 L g/dl
(6.3-8.2)
Urine Ketones 1+ A
(Negative)
Leukocyte Esterase Rfl 3+ A
(Negative)
Urine WBC (Reflex) 26-30 A /HPF
(0-5)
Urine Bacteria (Reflex) Few A
(Negative)
Urine Albumin (Reflex) 1+ A
(Neg - Trace)
09/13/24 15:35
09/13/24 15:35
Vital Signs
Initial and Last Documented VS:
Initial Vital Signs
Temp Pulse Resp BP Pulse Ox
36.2 C 70 16 164/65 100
09/13/24 15:32 09/13/24 15:32 09/13/24 15:32 09/13/24 15:32 09/13/24 15:32
Last Documented Vital Signs
Temp Pulse Resp BP Pulse Ox
36.6 C 65 18 127/52 100
09/14/24 07:00 09/14/24 07:00 09/14/24 07:00 09/14/24 07:00 09/14/24 07:00
<Sandra Brennan PA-C - Last Filed: 09/14/24 02:28>
Orders/Labs/Results
Orders:
Orders
09/13/24 15:28
EKG [Electrocardiogram (*1)] Urgent
Reason for Study: Chest Pain
EKG- Treatment ONCE
09/13/24 15:35
Complete Blood Count/With Diff Urgent
Comprehensive Metabolic Panel Urgent
Urinalysis Reflex To Culture Urgent
Date Specimen was Collected: 09/13/24
Time Specimen was Collected: 15:28
Urine Microscopic Reflex Cult Urgent
Urine Culture Urgent
JESSIE Source: U
Specimen Description:
Obtained by: Random
Date Specimen was Collected: 09/13/24
Time Specimen was Collected: 15:28
09/13/24 16:20
CT Cervical Spine W/o Iv Contr Urgent
Comment:
Reason For Exam: found on floor dementia
CT Head W/o Iv Contrast Urgent
Comment:
Reason For Exam: found on floor
09/13/24 16:23
CT Chest W/o Iv Contrast Urgent
Comment:
Reason For Exam: chest bruising
09/13/24 22:58
Admit/Transfer Patient As Directed
Co-Sign Provider:
Level of Care: Observation services
Assign to:: Telemetry
Physician / Group: Rayna
Diagnosis: Change in Mental Status
Reason for Telemetry: Syncope
Date to Stop Telemetry: 09/15/24
Time to Stop Telemetry: 11:00
09/13/24 22:59
PRN Pain Medication Management As Directed
May give lesser potent ordered pain med per pt: Yes
preference::
Protocol:: Medication orders for pain may be administered in a
manner that supports deferring to patient preference
when the pt is:
- Requesting an ordered lesser potent pain medication.
Least to most potent pain medications are defined
as: acetaminophen < NSAID < tramadol < opioids
(morphine, oxycodone, hydromorphone).
- Requesting a lesser dose of the same medication IF
ORDERED.
- Requesting a less intrusive route of administration
if both routes are prescribed by the provider (PO <
IV).
09/13/24 23:00
Code Status As Directed
Resuscitation Status: Do not resuscitate
Reached after discussion with pt or family/Healthcare POA: Yes
09/13/24 23:01
DNR Bracelet Application ONCE
09/14/24 01:12
Acetaminophen [Tylenol] 650 mg PO Q4HPRN PRN
Dextrose 50%-Water [Dextrose 50% Syringe] 12.5 grams IV [id number] PRN
Glucagon [GlucaGen] 1 mg IM PRN PRN
Heparin 5,000 units SC Q8
Melatonin 5 mg PO HSPRN PRN sleep
09/14/24 01:12
Activity As Directed
Activity Level: Out of Bed- Chair
With Assistance
Bedside Glucose Monitoring As Directed
Frequency: AC&HS
Additional Instructions:: Change to q6h if pt on TPN, tube feeding or not eating
Orthostatic Vital Signs As Directed
Orthostatic VS Frequency: BID
Vital Signs As Directed
Frequency: Per unit guidelines
Pt Eval And Treat Routine
Activity Level: Out of Bed-Early Mobility
With Assistance
Speech Therapy Eval & Treat Routine
DX Deep Vein Thrombosis Video Routine
09/14/24 Breakfast
NPO
Allow oral meds: Yes
Allow clear liquids: Sips of Clears
Comment: Allows med and sips if patient is alert
Levothyroxine [Synthroid] 150 mcg PO DAILY @ 0600
09/14/24 06:43
Basic Metabolic Panel IN AM
Complete Blood Count/No Diff IN AM
Glycohemoglobin (HgbA1c) IN AM
Magnesium IN AM
TSH Reflex To Free T4 IN AM
09/14/24 07:30
Insulin Aspart Corrective Low [Novolog Flexpen-Low Resistance] See Protocol SC AC
09/14/24 08:00
Cephalexin Monohydrate [Keflex] 500 mg PO BID
Clopidogrel Bisulfate [Plavix] 75 mg PO DAILY
Furosemide [Lasix] 20 mg PO DAILY
Galantamine [Razadyne] 8 mg PO BID
Hydroxychloroquine [Plaquenil] 400 mg PO DAILY
Memantine HCl [Namenda] 10 mg PO BID
09/14/24 22:00
Atorvastatin [Lipitor] 20 mg PO HS
09/15/24 11:00
DC Protocol for Telemetry ONCE
Abnormal Lab Results
09/13/24
15:35
RBC 3.50 L 10^6/uL
(4.20-5.40)
Hgb 11.2 L g/dL
(12.0-16.0)
Hct 33.3 L %
(37.0-47.0)
MCH 32.0 H pg
(27.0-31.0)
MPV 10.9 H fL
(7.4-10.4)
Absolute Monos (auto) 0.8 H 10^3/uL
(0.1-0.6)
Monocytes % 12.8 H %
(1.7-9.3)
Chloride 109 H mmol/L
(98-107)
BUN 28 H mg/dl
(7-17)
Creatinine 1.1 H mg/dL
(0.6-1.0)
Total Protein 6.1 L g/dl
(6.3-8.2)
Urine Ketones 1+ A
(Negative)
Leukocyte Esterase Rfl 3+ A
(Negative)
Urine WBC (Reflex) 26-30 A /HPF
(0-5)
Urine Bacteria (Reflex) Few A
(Negative)
Urine Albumin (Reflex) 1+ A
(Neg - Trace)
09/13/24 15:35
09/13/24 15:35
Vital Signs
Initial and Last Documented VS:
Initial Vital Signs
Temp Pulse Resp BP Pulse Ox
36.2 C 70 16 164/65 100
09/13/24 15:32 09/13/24 15:32 09/13/24 15:32 09/13/24 15:32 09/13/24 15:32
Last Documented Vital Signs
Temp Pulse Resp BP Pulse Ox
36.6 C 65 18 127/52 100
09/14/24 07:00 09/14/24 07:00 09/14/24 07:00 09/14/24 07:00 09/14/24 07:00
Yessicalt;Verena Barclay PA-C - Last Filed: 09/14/24 11:08>
MDM/Problems Addressed
Differential Diagnosis Includes:
dementia, uti, head injury, seizure
MDM/Problems Addressed:
78-year-old female presenting from a dementia unit from the residential for being found on the ground. It was unwitnessed potential event. But has not really been responsive since the event where she was found on the ground which is something
that she has had multiple ED visits for similar sounds as if she is having what has been diagnosed as sleep paralysisly and she has periods of the day where she is not responding to verbal or painful stimuli and minimally opening her eyes. It was
finally discussed with the son that these episodes should be not worked up unless there was a concern for trauma. Since the nurse found her on the ground they were not sure if she fell. Since she has been here she has been minimally responsive
occasionally opening her eyes to slits and occasionally tearful but otherwise not communicative at all. The only signs of trauma appear like old bruising to her chest probably from sternal rub and left shoulder. She is afebrile. She does have a
UTI which looks better than the other day when she had her initial collection sample sent and she is already on antibiotics with a normal white count.
She is still pending her CT reports but has not returned to her baseline which is fairly confused but awake. If she does not return to this baseline during this period of ED observation we will consider admission. However they are aware of her
previous presentations for similar episodes and that possibility that this is behavioral
<Verena Barclay PA-C - Last Filed: 09/14/24 11:08>
*Pulse Oximetry
SaO2: 98
Oxygen Mode of Delivery: Room air
<Sandra Brennan PA-C - Last Filed: 09/14/24 02:28>
*Pulse Oximetry
Patient hypoxic: no
*Critical Care Note
Total Time (30-74mins, 75-104mins- exclusive of procedures): Not Applicable
<Sandra Brennan PA-C - Last Filed: 09/14/24 02:28>
Update Note
Update Note:
6:40 pm
I received patient in sign out
On my assessment, patient continues to have her eyes closed and has saliva draining from her mouth
She is poorly responsive to pain but forcefully holds her eyes closed
I have previously evaluated patient on prior ER visit and this is not her baseline
Will admit for observation and further care
ED Attending Note
<Verena Barclay PA-C - Last Filed: 09/14/24 11:08>
-
Portions of this chart may have been created with voice recognition software.� Occasional wrong word or��sound alike� substitutions may have occurred due to the inherent limitations of voice recognition software.
Discharge Plan
Departure
Patient Disposition: Admit
Date of Disposition: 09/13/24
Time of Disposition: 22:19
Admit to: Med/Surg
Presentation/result/management discussed w/ accepting MD/DO: Hospitalist
Condition: Fair
Discharge Problem:
Altered mental status
Interventions
Interventions:
*Risk Screen - Suicide Last Done: 09/14/24 01:30
*General Assessment Last Done: 09/13/24 15:28
*Neglect/Abuse Screening Last Done: 09/13/24 15:28
*ED- Fall Risk Assessment Last Done: 09/13/24 15:28
*ED COVID-19 Vaccine History Last Done: 09/13/24 19:18
*Nursing Disposition Last Done: 09/14/24 00:53
ED- Pulmonary Assessment Last Done: 09/13/24 20:00
ED-Psychological Assessment Last Done: 09/13/24 18:05
ED- Neurological Assessment Last Done: 09/13/24 20:00
ED- Cardiac Assessment Last Done: 09/13/24 20:00
ED Swallowing Screen Last Done: 09/13/24 15:28
Discharge Date and Time
Discharge Date/Time: 09/14/24 00:53
[2024-09-13 16:27] LABS: Urine Red Blood Cell 0-2 /HPF (0-2); Urine Squamous Cell 0-2 /LPF (Few); Urine White Cell 26-30 /HPF (0-5)
--- NOTE | 2024-09-13 22:35 | HPS.HSE ---
Family Physician
-
Family Physician: Anshu Ku
Chief Complaint
-
Change in Mental Status
History of Present Illness
Patient is a 78 y/o female past medical history TIA/CVA, hypertension, hyperlipidemia, chronic kidney disease and lupus who presents with change in mental status. Patient resides at [facility]. She was found on the floor by staff.
Apparently this has happened several times and patient's PCP suspects she may be experiencing sleep paralysis. However today patient was not returning to her baseline like usual and decision was made to send her to the emergency department for
evaluation. Upon my evaluation patient does not know why she is in the hospital, and she has no complaints.
Medical History
Past Medical History
Past Medical History: Reports Other
Additional Past Medical History:
TIA/CVA
Alzheimer's Dementia
Diabetes Mellitus, Type II
Essential Hypertension
Hyperlipidemia
CKD Stage III
Systemic Lupus Erythematosus
Cutaneous Lupus Erythematosus
Hypothyroidism
Pulmonary Embolism (provoked following knee replacement)
Past Surgical History: Reports Other
Additional Past Surgical History:
Bilateral Total Knee Replacements
Hysterectomy
Bilateral Cataracts
Social History
Tobacco: Non-smoker
Living: Assisted Living
Family History
Family History: Not pertinent
Allergies / Home Medications
Allergies reflects when Allergies were last updated in [facility].
Home Medications with original date entered in [facility]
Allergy/Medication List:
Allergies
Allergy/AdvReac Type Severity Reaction Status Date / Time
No Known Allergies Allergy Verified 09/13/24 15:38
Home Medications
atorvastatin 20 mg tablet 20 mg PO HS High Cholesterol 01/06/16
hydroxychloroquine 200 mg tablet 400 mg PO DAILY Autoimmune Disorder 01/06/16
clopidogrel 75 mg tablet (Plavix) 75 mg PO DAILY Blood Clot Prevention/Tx 07/13/24
galantamine 4 mg tablet 8 mg PO BID Diabetes 07/13/24
levothyroxine 150 mcg tablet 150 mcg PO DAILY Thyroid 07/13/24
memantine 10 mg tablet 10 mg PO BID Mental Health/Anxiety 07/13/24
metformin 500 mg tablet 500 mg PO BID Diabetes 07/13/24
acetaminophen 325 mg tablet (Tylenol) 650 mg PO Q4HPRN PRN mild pain 08/27/24
furosemide 20 mg tablet (Lasix) 20 mg PO DAILY 08/27/24
loperamide 2 mg tablet 2 mg PO Q2HPRN PRN diarrhea 08/27/24
melatonin 5 mg tablet 5 mg PO HSPRN PRN sleep 08/27/24
miconazole nitrate 2 % topical powder (Miconazorb AF) 1 applic topical BID abd folds 08/27/24
Review of Systems
-
Unable to obtain full review of systems at this time due to: Dementia
Physical Exam
Vital Signs
Vital Signs
Temp Pulse Resp BP Pulse Ox
98.1 F 59 18 126/47 99
09/13/24 19:18 09/13/24 21:30 09/13/24 21:33 09/13/24 21:00 09/13/24 21:30
Physical Exam
General: Comfortable and Conversant
HEENT: Anicteric, Moist mucous membranes and PERRLA
Respiratory: Clear and Non Labored Respirations
Cardiac: S1/S2 and Regular Rhythm
GI: Soft and Non Tender
Rectal: Deferred by Provider
Musculoskeletal: No Clubbing, No Cyanosis and Other (+1 edema bilateral lower extremities)
Skin: Warm and Dry
Neuro: Awake, Alert, Oriented (Self, Place (Initially gave correct year to nurse as well but unable to give me correct year)) and Other (Follows commands appropriately)
Psych: Calm
Laboratory Results
-
09/13/24 15:35
09/13/24 15:35
Laboratory Results
Total Bilirubin 0.8 mg/dl (0.2-1.3) 08/03/25 15:35
AST 29 U/L (14-36) 09/13/24 15:35
ALT 18 U/L (0-35) 09/13/24 15:35
Alkaline Phosphatase 41 U/L (38-126) 09/13/24 15:35
Data Reviewed
-
CT Scan: Report Reviewed by me
Lab Data: Labs Reviewed by me
Old Records: Reviewed
Impression/Plan
-
Frequent Falls
-Most falls appears to be unwitnessed
-Monitor on Telemetry and Check orthostatic vitals for possible syncope
-Consult PT
Change in Mental Status, unclear of patient's true baseline
-Plan to monitor patient overnight as observation status
Proteus Urinary Tract Infection
-Appears patient may have been started on Amoxicillin on Sep 11
-Start Cephalexin
Hx TIA/CVA
-Continue Plavix
Alzheimer's Dementia
-Monitor for mood/behavior changes
-Continue galantamine
Diabetes Mellitus, Type II
-Hold metformin
-Monitor sugars and continue coverage insulin
Essential Hypertension
-Continue Lasix
Hyperlipidemia
-Continue atorvastatin
CKD Stage III
-Creatinine at baseline
Systemic Lupus Erythematosus
-Continue hydroxychloroquine
Hypothyroidism
-Continue levothyroxine
Hx Provoked Pulmonary Embolism
DVT proph: SC Heparin
Code Status: DNR
--- NOTE | 2024-09-13 23:10 | W.PN.UPDATE ---
Update Note
Progress Note Update
Patient seen in conjunction with [facility]. I agree with her findings on history and physical. I concur with assessment and plan unless stated otherwise.
Briefly, is a 78-year-old with past medical history significant for dementia, hypothyroid, hpq-[id number] diabetes, rheumatoid arthritis presenting from nursing facility for oral alteration in mental status.
Patient apparently was found on the ground unresponsive by nursing staff. She apparently has been currently on antibiotics for UTI. She was afebrile. She has had multiple ED evaluations for syncopal type episodes, unresponsive episodes. The
patient's family doctor has indicated that she probably has sleep paralysis and should not be sent to the emergency department for behaviors such as today. However nursing staff felt the presentation was slightly different and the patient did not
return to her baseline as prior. In the emergency department she appears to be at baseline which is pleasantly confused but oriented to person and been able to follow simple commands.
Here in the emergency department she was afebrile, blood pressure was 114/70 pulse rate of 62 satting 99% on room air. CBC was unremarkable, electrolytes BUN/creatinine were normal. UA remains positive. CT of the head shows nothing acute.
Assessment and plan
Unresponsive episode - Possible syncope but likely similar to prior episodes where no abnormality has been determined
- admit to obs
- telemetry, cycle enzymes for now
- orthostatics vs
- will hold off on echo unless repeat episode occurs
- continue her plavix, statin and levothyroxine
UTI - + u/a with cultures from 09/08 for which she was started on amoxicillin
- continue with keflex
DVT PPX- lovenox sq
Code status DNR
[2024-09-14] VITALS (9 sets, daily range): BP systolic 111–145; BP diastolic 48–75; PULSE 61–100; O2SAT 98; BMI 27.7
--- NOTE | 2024-09-14 01:55 | PTCARENOTE ---
Rec'd pt from ER. transferred to bed. placed on telemetry. pt with eyes closed, won't open them for RN.followed simple commands. knows she is at [facility] but could not answer admission questions. bed alarm in place. call leonardo in reach.
[2024-09-14] MEDS: HEPARIN 5000 UNITS SC ×4 (01:59→23:19)
--- NOTE | 2024-09-14 02:51 | PTCARENOTE ---
attempted swallow screen but pt is uncooperative. there is order for npo but ok for sips and meds pending speech evaluation
[2024-09-14] MEDS: SYNTHROID PO (06:00)
--- NOTE | 2024-09-14 06:28 | PTCARENOTE ---
Maxwell PaulsonNP aware that pt pulled off rigging engineer. attempt made to place it back on but pt began swatting at nurse. will attempt again to place monitor back on.
[2024-09-14 07:13] LABS: Hematocrit 33.0 % (37.0-47.0); Hemoglobin 10.9 g/dL (12.0-16.0); Mean Corp Hgb Conc. 33.0 g/dL (33.0-37.0); Mean Corpuscular Volume 96.8 fL (81.0-99.0); Platelet Count 181 10^3/uL (130-400); Red Cell Dist. Width 13.0 % (11.5-14.5)
[2024-09-14 07:25] LABS: Blood Urea Nitrogen 22 mg/dl (7-17); Calcium 9.0 mg/dl (8.4-10.2); Carbon Dioxide 27 mmol/L (22-30); Chloride 110 mmol/L (98-107); Estimated Creatinine Clearance 41 ml/min; Glucose 77 mg/dl (70-99); Magnesium 1.8 mg/dl (1.6-2.3); Potassium 3.9 mmol/L (3.5-5.1); Sodium 140 mmol/L (135-145); eGFR 57.31
[2024-09-14 07:50] LABS: Glucose - Point of Care 69 mg/dl (70-99)
[2024-09-14] MEDS: NOVOLOG FLEXPEN-LOW RESISTANCE SC ×2 (08:04→11:59)
[2024-09-14] MEDS: LASIX 20 MG PO (08:17)
[2024-09-14] MEDS: PLAVIX 75 MG PO (08:17)
[2024-09-14] MEDS: PLAQUENIL 400 MG PO (08:18)
[2024-09-14] MEDS: NAMENDA 10 MG PO ×2 (08:18→20:48)
[2024-09-14] MEDS: KEFLEX 500 MG PO ×2 (08:18→20:48)
[2024-09-14] MEDS: RAZADYNE 8 MG PO (08:20)
--- NOTE | 2024-09-14 09:00 | PTOTSP ---
Speech Language Pathology
Pt seen for clinical bedside swallow evaluation. P.O. trials of puree, regular solids, and thin liquids provided. Adequate mastication, bolus formation, and A-P transit noted with no oral residue. No overt signs of aspiration.
Recommend:
(1) Regular solids/thin liquids
(2) General aspiration precautions
(3) Meds as tolerated
(4) SECONDARY CONNECTOR ARMATURE to sign off. Please reconsult as indicated
[2024-09-14 09:03] LABS: Glycohemoglobin (HgbA1c) 5.5 % (4.0-5.6)
[2024-09-14 09:06] LABS: Glucose - Point of Care 122 mg/dl (70-99)
--- NOTE | 2024-09-14 10:55 | CM ---
Called Pt's son to obtain IA information; LM. Per RN pt is confused and in 2 point restraints.
--- NOTE | 2024-09-14 12:00 | CM ---
Addendum entered by Rima Thomas 09/14/24 14:30:
Spoke with Ruthy at [facility]. Pt's baseline is independent with ADLs with queuing and ambulatory with walker. PT rec Home health
Addendum entered by Rima Thomas 09/14/24 12:20:
Correction; pt lives a [facility], NOT [facility]
Plan: Waiting for PT evaluation to determine skill level.
Original Note:
Chart reviewed. Pt unable to answer IA assessment question. CM spoke with son to obtain the following: Lives in the [facility] center at [facility]. Uses a walker to ambulate. Verified PCP, Pharmacy and insurance. Reviewed [facility] with son and copy
placed in Pt room and on chart . Also met with pt.
Plan: Return to [facility]. Will follow for any discharge needs
[2024-09-14 12:10] LABS: Glucose - Point of Care 113 mg/dl (70-99)
--- NOTE | 2024-09-14 14:14 | W.PN.HOSP.TC ---
Today's Communication/Plan
-
Monitor per
Hold Lasix
Regular diet
Assessment / Plan
Assessment / Plan
Impression:
Unresponsive episode at the nursing facility
Urinary tract infection without complications
Dehydration with mild RENETTA
Other conditions:
History of TIA/CVA.
Alzheimer dementia
Diabetes mellitus type 2.
Essential hypertension
Dyslipidemia
CKD stage III
SLE
Hypothyroidism
Plan:
Frequent falls at nursing facility.
Exam with mental status back to baseline and no focal neurologic findings.
CT scan of the head with no acute abnormalities
Chest CT with no acute abnormalities including chest trauma.
Noted mild dehydration with normal BUN/creatinine improving with IV fluid bolus.
Telemetry unremarkable.
Monitor for orthostasis.
Wean off IV fluids.
Hold Lasix
Advance diet
Change in mental status, suspect metabolic encephalopathy in the settings of dehydration probable UTI in patient with advanced dementia.
Mentation close to baseline.
Proteus Urinary Tract Infection
-Appears patient may have been started on Amoxicillin on Sep 11
-Start Cephalexin
Hx TIA/CVA
-Continue Plavix
Alzheimer's Dementia
-Monitor for mood/behavior changes
-Continue galantamine
Diabetes Mellitus, Type II
-Hold metformin
-Monitor sugars and continue coverage insulin
Essential Hypertension
- Holding Lasix given dehydration and unpredictable oral intake
Hyperlipidemia
-Continue atorvastatin
CKD Stage III
-Creatinine at baseline
Systemic Lupus Erythematosus
-Continue hydroxychloroquine
Hypothyroidism
-Continue levothyroxine
Hx Provoked Pulmonary Embolism
DVT proph: SC Heparin
Code Status: DNR
Anticipated Discharge: 24 - 48 hours
Subjective/Interval History
-
Date of Service: September 14, 2024
Objective Data
-
Labs:
Laboratory Results
09/14/24
06:43
WBC 6.4
Hgb 10.9 L
Hct 33.0 L
Plt Count 181
Sodium 140
Potassium 3.9
Chloride 110 H
Carbon Dioxide 27
BUN 22 H
Creatinine 1.0
Glucose 77
Calcium 9.0
Vital Signs:
Vital Signs
Temp Pulse Resp BP Pulse Ox
98.4 F 63 18 120/64 99
09/14/24 11:00 09/14/24 11:00 09/14/24 11:00 09/14/24 11:00 09/14/24 11:00
Physical Exam
-
General: Well Developed and No Apparent Distress
HEENT: Normocephalic, Atraumatic and Moist Mucous Membranes
Respiratory: Clear to Auscultation
Cardiac: Regular Rhythm and S1/S2; Negative Murmur, Rub or Gallop
GI: Soft, Nontender, Nondistended and Normal Bowel Sounds; Negative Organomegaly
Rectal: Deferred by Provider
Musculoskeletal: No Clubbing, No Cyanosis and No Edema
Skin: Negative Rash
Neuro: Awake, Alert, Oriented (Name only) and Nonfocal/Grossly Intact
[2024-09-14 16:44] LABS: Glucose - Point of Care 165 mg/dl (70-99)
[2024-09-14] MEDS: NOVOLOG FLEXPEN-LOW RESISTANCE 1 UNITS SC (17:00)
[2024-09-14] MEDS: RAZADYNE PO (20:48)
[2024-09-14] MEDS: LIPITOR 20 MG PO (20:48)
[2024-09-14 21:53] LABS: Glucose - Point of Care 135 mg/dl (70-99)
[2024-09-15 03:14] VITALS: BP 121/59
[2024-09-15] MEDS: SYNTHROID 150 MCG PO (05:48)
[2024-09-15 07:49] LABS: Glucose - Point of Care 135 mg/dl (70-99)
[2024-09-15 07:55] VITALS: BP 124/80
[2024-09-15 07:59] LABS: Hematocrit 33.5 % (37.0-47.0); Hemoglobin 11.0 g/dL (12.0-16.0); Mean Corp Hgb Conc. 32.8 g/dL (33.0-37.0); Mean Corpuscular Volume 96.0 fL (81.0-99.0); Nucleated Red Blood Cells % 0 %; Platelet Count 181 10^3/uL (130-400); Red Cell Dist. Width 13.0 % (11.5-14.5)
[2024-09-15] MEDS: NAMENDA 10 MG PO (08:03)
[2024-09-15] MEDS: KEFLEX 500 MG PO (08:03)
[2024-09-15] MEDS: RAZADYNE 8 MG PO (08:03)
[2024-09-15] MEDS: PLAVIX 75 MG PO (08:03)
[2024-09-15] MEDS: PLAQUENIL 400 MG PO (08:03)
[2024-09-15] MEDS: HEPARIN 5000 UNITS SC (08:04)
[2024-09-15] MEDS: NOVOLOG FLEXPEN-LOW RESISTANCE SC (08:04)
[2024-09-15 08:57] LABS: Blood Urea Nitrogen 24 mg/dl (7-17); Calcium 8.9 mg/dl (8.4-10.2); Carbon Dioxide 26 mmol/L (22-30); Chloride 109 mmol/L (98-107); Estimated Creatinine Clearance 38 ml/min; Glucose 134 mg/dl (70-99); Potassium 4.0 mmol/L (3.5-5.1); Sodium 139 mmol/L (135-145); eGFR 51.11
--- NOTE | 2024-09-15 10:35 | W.DS.TRANS ---
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
-
Discharge Instructions:
Discharge Diagnosis/Procedures Falls
Diet Regular
Instructions:
Stand-Alone Forms:
Changes to Home Medications: Yes
Discharge Medications:
DC Medications w/original date entered in [facility]
atorvastatin 20 mg tablet 20 mg PO HS High Cholesterol 01/06/16
hydroxychloroquine 200 mg tablet 400 mg PO DAILY Autoimmune Disorder 01/06/16
clopidogrel 75 mg tablet (Plavix) 75 mg PO DAILY Blood Clot Prevention/Tx 07/13/24
galantamine 4 mg tablet 8 mg PO BID Neurological Condition 07/13/24
levothyroxine 150 mcg tablet 150 mcg PO DAILY Thyroid 07/13/24
memantine 10 mg tablet 10 mg PO BID Mental Health/Anxiety 07/13/24
metformin 500 mg tablet 500 mg PO BID Diabetes 07/13/24
acetaminophen 325 mg tablet (Tylenol) 650 mg PO Q4HPRN PRN mild pain 08/27/24
loperamide 2 mg tablet 2 mg PO Q2HPRN PRN diarrhea 08/27/24
melatonin 5 mg tablet 5 mg PO HSPRN PRN sleep 08/27/24
miconazole nitrate 2 % topical powder (Miconazorb AF) 1 applic topical BID abd folds 08/27/24
cephalexin 500 mg capsule 500 mg PO BID #6 caps 09/15/24
Home Medication Changes
Lasix stopped
Pending Results: No
--- NOTE | 2024-09-15 11:15 | CM ---
Addendum entered by Rima Thomas 09/15/24 13:18:
Received approval for skilled care at [facility];
start date 09/15/24, next review date 09/17/24
REf# [id number]
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
Original Note:
Pt cleared for discharge today. Transferred to [place] via ambulance. Pt/OT script sent with patient.
Plan: Return to [place]
[facility]
Report [phone]
== END 2024-09-15 11:38 | disposition home or self-care (01) ==
LOC: 4 WEST ACU 23:17
PROVIDERS: Physician Assistant Medical; ADMITTING PHYSICIAN Internal Medicine; ATTENDING PHYSICIAN Internal Medicine; EMERGENCY PHYSICIAN Emergency Medicine; FAMILY PHYSICIAN Internal Medicine Geriatric Medicine
DX: R55 Syncope and collapse (principal); R41.82 Altered mental status, unspecified; N39.0 Urinary tract infection, site not specified; E86.0 Dehydration; N17.9 Acute kidney failure, unspecified; R29.6 Repeated falls; F02.80 Dementia in other diseases classified elsewhere, unspecified severity, without behavioral disturbance, psychotic disturbance, mood disturbance, and anxiety; G30.9 Alzheimer's disease, unspecified; S20.214A Contusion of middle front wall of thorax, initial encounter; X58.XXXA Exposure to other specified factors, initial encounter; Y93.89 Activity, other specified; Y92.099 Unspecified place in other non-institutional residence as the place of occurrence of the external cause; I12.9 Hypertensive chronic kidney disease with stage 1 through stage 4 chronic kidney disease, or unspecified chronic kidney disease; E78.00 Pure hypercholesterolemia, unspecified; E03.9 Hypothyroidism, unspecified; E11.22 Type 2 diabetes mellitus with diabetic chronic kidney disease; M32.8 Other forms of systemic lupus erythematosus; I34.81 Nonrheumatic mitral (valve) annulus calcification; I25.10 Atherosclerotic heart disease of native coronary artery without angina pectoris; N18.30 Chronic kidney disease, stage 3 unspecified; R94.31 Abnormal electrocardiogram [ECG] [EKG]; Z66 Do not resuscitate; Z86.73 Personal history of transient ischemic attack (TIA), and cerebral infarction without residual deficits; Z87.440 Personal history of urinary (tract) infections; Z96.653 Presence of artificial knee joint, bilateral; Z86.711 Personal history of pulmonary embolism; Z79.84 Long term (current) use of oral hypoglycemic drugs; Z79.890 Hormone replacement therapy; Z79.02 Long term (current) use of antithrombotics/antiplatelets; Z79.899 Other long term (current) drug therapy; Z90.710 Acquired absence of both cervix and uterus
CPT/HCPCS: 70450; 71250; 72125; 80048; 80053; 81003; 81015; 82962; 83036; 83735; 84439; 84443; 85025; 85027; 87086; 92610; 93005; 97163; 99285; G0378

== ENCOUNTER 2024-09-16 10:32 | Emergency (ER) | payer OTHER, SELFPAY ==
[2024-09-16 10:40] VITALS: BP 176/76
--- NOTE | 2024-09-16 11:12 | ED.GENMED ---
History of Present Illness
General
Chief Complaint: Fall
Source: records
Exam Limitations: dementia
Time Seen by Provider: 09/16/24 11:03
History of Present Illness
History of Present Illness:
78-year-old female presents emergency department after a reported fall, patient was found on the floor. History very limited as patient is not speaking with me. She reportedly denied injury. It is noted that patient is having frequent falls and
is on anticoagulation.
Past History
Past History
ED Past Medical History: HTN, Hypercholesterolemia, Hypothyroidism, Other ('skin lupus' ) and Other (Dementia)
ED Past Surgical History: Gynecological (Hysterectomy), Orthopedic (2 knee replacments (1 B/L)) and Other (B/L cataract resections; MRSA)
Social History
Tobacco: Non-smoker
Alcohol: None
Drug: None
Personal:
Living: [facility]
Employment: Retired
Family History
Family History: Other (reviewed and non-contributory)
Phy Exam
Physical Exam
Physical Exam:
GENERAL: Alert , in no apparent distress
EYE: pupils equal and reactive,no photophobia. Pt reluctanct to perform eomi
NECK: Supple, no significant adenopathy, no suspected midline ttp.
ENT: o/p clr, mmm, no signs head/facial/neck inj, no batte, no raccoon.
CARDIAC: Regular rate and rhythm .
LUNGS: Clear breath sounds bilaterally, no acute respiratory distress, sl rales bibasilar
ABDOMEN: Soft, without focal tenderness, no r/g
NEUROLOGICAL: Awake, follows commands but at times uncooperative,maee, no facial droop, opens eyes to command, nonverbal
SKIN: Warm and dry, skin intact.
MUSCULOSKELETAL: No edema, well perfused.
PSYCH: nonverbal
Course
Orders/Labs/Results
Orders:
Orders
09/16/24 11:11
CT Cervical Spine W/o Iv Contr Urgent
Comment:
Reason For Exam: repeat fall, dementia
CT Head W/o Iv Contrast Urgent
Comment:
Reason For Exam: repeat fall, on anticoag
Vital Signs
Initial and Last Documented VS:
Initial Vital Signs
Temp
97.5 F
09/16/24 10:37
Last Documented Vital Signs
Temp Pulse Resp BP Pulse Ox
97.5 F 59 13 153/55 100
09/16/24 10:37 09/16/24 14:14 09/16/24 13:30 09/16/24 14:14 09/16/24 11:18
*Pulse Oximetry
SaO2: 100
Oxygen Mode of Delivery: Room air
Patient hypoxic: no
*Critical Care Note
Total Time (30-74mins, 75-104mins- exclusive of procedures): Not Applicable
Update Note
Update Note:
Patient presents to the Emergency Department with ___reported fall
Number and Complexity of Problems Addressed at the Encounter
� Chronic conditions affecting care:
� Acute Exacerbation and/or Progression of Chronic Illness:
� Differential Diagnosis includes:but not limited to subdural hematoma, ich, cervical stdrain, etc etc etc
Amount and/or Complexity of Data to be Reviewed and Analyzed
� I performed an independent evaluation of and my interpretation is:
EKG:
CT: Read by radiology neck and head NAD
Xrays:
Laboratory Studies:
Other:
� Review of other/old records reveals: Patient was just discharged from the hospital yesterday after being evaluated for reported unresponsive episode, workup generally unremarkable, mild dehydration noted.
� Clinical information was obtained by an independent historian:
� Prescriptions/Medications Considered but not given:
� Further testing considered but not performed: Consideration of further testing such as labs and ECG however this was deferred given patient just had extensive workup and was discharged yesterday.
Risk of Complications and/or Morbidity or Mortality of Patient Management
� Social determinants of health affecting care:
� Discussion with other providers (PCP, Hospitalists, Consultants, etc): Did recommend to [facility] that patient's use of anticoagulation be reconsidered by her prescribing doctor given her history of recent falls
� Escalation of care including admission/observation vs risk of discharge considered:
ED Attending Note
-
Portions of this chart may have been created with voice recognition software.� Occasional wrong word or��sound alike� substitutions may have occurred due to the inherent limitations of voice recognition software.
Discharge Plan
Departure
Patient Disposition: Half-Way/SNF
Date of Disposition: 09/16/24
Time of Disposition: 13:18
Patient with high blood pressure during this ER visit?: Yes
Condition: Good
Discharge Problem:
Fall
Instructions: Preventing falls in adults, BLOOD PRESSURE
Prescriptions:
No Action
atorvastatin 20 MG tablet
20 mg PO HS
hydroxychloroquine 200 MG tablet
400 mg PO DAILY
metformin 500 mg Tablet
500 mg PO BID
galantamine 4 mg Tablet
8 mg PO BID
clopidogrel [Plavix] 75 mg Tablet
75 mg PO DAILY
levothyroxine 150 mcg Tablet
150 mcg PO DAILY
memantine 10 mg Tablet
10 mg PO BID
acetaminophen [Tylenol] 325 mg Tablet
650 mg PO Q4HPRN PRN (Reason: mild pain)
loperamide 2 mg Tablet
2 mg PO Q2HPRN PRN (Reason: diarrhea)
melatonin 5 mg Tablet
5 mg PO HSPRN PRN (Reason: sleep)
miconazole nitrate [Miconazorb AF] 2 % powder
1 applic topical BID
cephalexin 500 mg Capsule
500 mg PO BID Qty: 6 0RF
Referrals:
Anshu Ku MD [Family Provider, Internal Medicine]
Activity Restrictions/Additional Instructions:
PLEASE CONSULT WITH YOUR DOCTOR REGARDING WHETHER YOU SHOULD CONTINUE YOUR BLOOD THINNING MEDICATION. IF YOU DEVELOP SEVERE HEADACHE, NECK PAIN, REPEATED VOMITING, LETHARGY, OR OTHER WORRISOME SIGNS, PLEASE RETURN TO THE ER IMMEDIATELY!
Interventions
Interventions:
*Risk Screen - Suicide Last Done: 09/16/24 12:16
*General Assessment Last Done: 09/16/24 12:16
*Neglect/Abuse Screening Last Done: 09/16/24 12:16
*ED- Fall Risk Assessment Last Done: 09/16/24 14:36
*ED COVID-19 Vaccine History Last Done: 09/16/24 12:16
*Nursing Disposition Last Done: 09/16/24 14:36
ED-Musculoskeletal Assessment Last Done: 09/16/24 11:32
ED- Neurological Assessment Last Done: 09/16/24 11:32
ED-Skin Assessment Last Done: 09/16/24 11:32
Discharge Date and Time
Discharge Date/Time: 09/16/24 14:38
Print Language: LEBANESE
[2024-09-16 14:14] VITALS: BP 153/55
== END 2024-09-16 14:38 ==
LOC: EMR 10:32
PROVIDERS: EMERGENCY PHYSICIAN Emergency Medicine; FAMILY PHYSICIAN Internal Medicine Geriatric Medicine
DX: Z04.3 Encounter for examination and observation following other accident (principal); I10 Essential (primary) hypertension; E78.00 Pure hypercholesterolemia, unspecified; E03.9 Hypothyroidism, unspecified; F03.90 Unspecified dementia, unspecified severity, without behavioral disturbance, psychotic disturbance, mood disturbance, and anxiety; L93.1 Subacute cutaneous lupus erythematosus; R29.6 Repeated falls; Z79.01 Long term (current) use of anticoagulants; Z96.653 Presence of artificial knee joint, bilateral; Z86.14 Personal history of Methicillin resistant Staphylococcus aureus infection
CPT/HCPCS: 99284; 70450; 72125

== ENCOUNTER 2024-10-05 15:48 | Emergency (ER) | payer OTHER, SELFPAY ==
[2024-10-05 15:50] VITALS: BP 139/56
--- NOTE | 2024-10-05 16:52 | ED.GENMED ---
History of Present Illness
General
Chief Complaint: Fall
Source: patient
Time Seen by Provider: 10/05/24 15:50
History of Present Illness
History of Present Illness:
6-year-old female presents to the emergency room from [facility] where she had a fall. Patient has had frequent falls while at [facility]. She does have dementia and clearly some balance issues. Patient is awake and tells me that she is cold. She
thanked me when I give her warm blankets. Other than that she is not really providing any history. She does have an obvious contusion to her right forehead. She denies pain when specifically asked.
Past History
Past History
ED Past Medical History: HTN, Hypercholesterolemia, Hypothyroidism, Other ('skin lupus' ) and Other (Dementia)
ED Past Surgical History: Gynecological (Hysterectomy), Orthopedic (2 knee replacments (1 B/L)) and Other (B/L cataract resections; MRSA)
Social History
Tobacco: Non-smoker
Alcohol: None
Drug: None
Personal:
Living: [facility]
Employment: Retired
Family History
Family History: Other (reviewed and non-contributory)
Phy Exam
Physical Exam
Physical Exam:
General: Awake, responds to her name. Does not really answer any other questions
Vitals: unremarkable
Head: Right frontal contusion
Eyes: Pupils equal, EOMI
Throat: Airway intact, no exudates
Neck: Trachea midline
Lungs: Clear and equal b/l
Heart: Regular rate, no murmurs
Neuro: Grossly nonfocal
Skin: Warm, dry, no rash
Extremities: pulses equal b/l, no edema. No apparent tenderness with range of motion of the upper and lower extremities.
Course
Orders/Labs/Results
Orders:
Orders
10/05/24 15:50
CT Head W/o Iv Contrast Urgent
Comment:
Reason For Exam: fall on thinners
10/05/24 15:57
CT Cervical Spine W/o Iv Contr Urgent
Comment:
Reason For Exam: fall
Vital Signs
Initial and Last Documented VS:
Initial Vital Signs
Temp Pulse Resp BP Pulse Ox
98.1 F 75 18 139/56 99
10/05/24 15:50 10/05/24 15:50 10/05/24 15:50 10/05/24 15:50 10/05/24 15:50
Last Documented Vital Signs
Temp Pulse Resp BP Pulse Ox
98.1 F 75 18 145/60 100
10/05/24 15:50 10/05/24 15:50 10/05/24 15:50 10/05/24 17:21 10/05/24 17:30
MDM/Problems Addressed
Differential Diagnosis Includes:
Scalp hematoma, subdural, subarachnoid hemorrhage
MDM/Problems Addressed:
Patient presents after a fall at [facility] shows no acute intracranial abnormality. She does have a scalp hematoma which is noted on physical exam. 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
compression etc. Given her age and comorbidities she would not be a candidate for any sort of intervention for this so just conservative management.
*Radiology
Radiology exam reviewed: radiology read reviewed
*Pulse Oximetry
SaO2: 98
Oxygen Mode of Delivery: Room air
Patient hypoxic: no
*Critical Care Note
Total Time (30-74mins, 75-104mins- exclusive of procedures): Not Applicable
ED Attending Note
-
Portions of this chart may have been created with voice recognition software.� Occasional wrong word or��sound alike� substitutions may have occurred due to the inherent limitations of voice recognition software.
Discharge Plan
Departure
Patient Disposition: Residential/SNF
Date of Disposition: 10/05/24
Time of Disposition: 17:48
Condition: Fair
Discharge Problem:
Head injury
Instructions: Head Injury in Adults (DC), Preventing falls in adults
Prescriptions:
No Action
atorvastatin 20 MG tablet
20 mg PO HS
hydroxychloroquine 200 MG tablet
400 mg PO DAILY
metformin 500 mg Tablet
500 mg PO BID
galantamine 4 mg Tablet
8 mg PO BID
clopidogrel [Plavix] 75 mg Tablet
75 mg PO DAILY
levothyroxine 150 mcg Tablet
150 mcg PO DAILY
memantine 10 mg Tablet
10 mg PO BID
acetaminophen [Tylenol] 325 mg Tablet
650 mg PO Q4HPRN PRN (Reason: mild pain)
loperamide 2 mg Tablet
2 mg PO Q2HPRN PRN (Reason: diarrhea)
melatonin 5 mg Tablet
5 mg PO HSPRN PRN (Reason: sleep)
miconazole nitrate [Miconazorb AF] 2 % powder
1 applic topical BID
cephalexin 500 mg Capsule
500 mg PO BID Qty: 6 0RF
Referrals:
Anshu Ku MD [Family Provider, Internal Medicine]
Interventions
Interventions:
*Risk Screen - Suicide Last Done: 10/05/24 16:05
*General Assessment Last Done: 10/05/24 16:06
*Neglect/Abuse Screening Last Done: 10/05/24 16:05
*ED- Fall Risk Assessment Last Done: 10/05/24 16:06
*ED COVID-19 Vaccine History Last Done: 10/05/24 16:06
ED-Musculoskeletal Assessment Last Done: 10/05/24 15:50
ED- Neurological Assessment Last Done: 10/05/24 15:50
ED-Skin Assessment Last Done: 10/05/24 15:50
Discharge Date and Time
Print Language: MONTSERRATIAN
[2024-10-05 17:00] VITALS: BP 125/49
[2024-10-05 17:21] VITALS: BP 145/60
== END 2024-10-05 19:12 ==
LOC: EMR 15:48
PROVIDERS: EMERGENCY PHYSICIAN Emergency Medicine; FAMILY PHYSICIAN Internal Medicine Geriatric Medicine
DX: S09.90XA Unspecified injury of head, initial encounter (principal); S00.83XA Contusion of other part of head, initial encounter; M47.12 Other spondylosis with myelopathy, cervical region; F03.90 Unspecified dementia, unspecified severity, without behavioral disturbance, psychotic disturbance, mood disturbance, and anxiety; I10 Essential (primary) hypertension; E78.00 Pure hypercholesterolemia, unspecified; E03.9 Hypothyroidism, unspecified; M32.9 Systemic lupus erythematosus, unspecified; Z79.01 Long term (current) use of anticoagulants; Z79.02 Long term (current) use of antithrombotics/antiplatelets; Z96.653 Presence of artificial knee joint, bilateral; Z86.14 Personal history of Methicillin resistant Staphylococcus aureus infection; W19.XXXA Unspecified fall, initial encounter; Y92.099 Unspecified place in other non-institutional residence as the place of occurrence of the external cause
CPT/HCPCS: 99284; 70450; 72125

== ENCOUNTER 2024-10-13 13:42 | Emergency (ER) | payer OTHER, SELFPAY ==
[2024-10-13 13:51] VITALS: BP 146/76
[2024-10-13 13:59] LABS: Glucose - Point of Care 143 mg/dl (70-99)
[2024-10-13 14:00] VITALS: BP 159/59
--- NOTE | 2024-10-13 14:44 | ED.GENMED ---
Addendum entered and electronically signed by NATIVIDAD Hooper 10/16/24 07:04:
Patient's urine positive for E. coli I spoke to nurse at [facility] and a prescription for cefdinir was sent to patient's pharmacy health directed. At this time pt has no s/s. Discussed close follow-up with PCP.
Original Note:
History of Present Illness
<Sandra Griffiths NP - Last Filed: 10/13/24 22:34>
General
Chief Complaint: Change in Mental Status
Source: ambulance crew and snf
Exam Limitations: altered mental status
Time Seen by Provider: 10/13/24 14:29
Nursing documentation reviewed up to this point in time: agreed with
History of Present Illness
History of Present Illness:
Patient to ED from [place] for altered mental status. According to [place] report, patient will at times 'act unresponsive'. Today she did this at lunch but staff was unable to get her to respond to them so EMS was contacted. EMS reports that she became
alert and talkative on way to ED. On arrival here she is not following commands. Responds to painful stimuli. Right side of face with old bruising from a fall she had approx 1 week ago. Incontinent of urine.
Past History
<Sandra Griffiths NP - Last Filed: 10/13/24 22:34>
Past History
ED Past Medical History: HTN, Hypercholesterolemia, Hypothyroidism, Other ('skin lupus' ) and Other (Dementia)
ED Past Surgical History: Gynecological (Hysterectomy), Orthopedic (2 knee replacments (1 B/L)) and Other (B/L cataract resections; MRSA)
Social History
Tobacco: Non-smoker
Alcohol: None
Drug: None
Personal:
Living: snf
Employment: Retired
Family History
Family History: Other (reviewed and non-contributory)
Review of Systems
<Sandra Griffiths NP - Last Filed: 10/13/24 22:34>
Review of Systems
Allergies reviewed?: Yes
All Other Systems: ROS reviewed and negative except as documented in HPI and ROS
Constitutional: Reports no symptoms
EENT: Reports no symptoms
Respiratory: Reports no symptoms
Cardiac: Reports no symptoms
ABD/GI: Reports no symptoms
: Reports other (Incontinent of urine on arrival to ED)
Musculoskeletal: Reports other (not following commands. Unable to completely assess)
Skin: Reports other (old bruising right orbit and right side of face)
Neurological: Reports other (reponding only to painful stimuli)
Phy Exam
<Sandra Griffiths SPRAY PAINTING MACHINE OPERATOR - Last Filed: 10/13/24 22:34>
General Physical Exam
General Presentation: no apparent distress
General age: appears stated age
General Skin: warm and dry
General Habitus: normal
General Mental: alert
Cardiovascular Exam
Cardiovascular Exam: regular rate/rhythm and no edema
Pulmonary Exam
Pulmonary Exam: lungs clear and no respiratory distress
Musculoskeletal Exam
Musculoskeletal Exam: full ROM and neuro vasc intact
Skin Exam
Skin Exam: warm/dry, no rash and other (old bruising to right side of face.)
Psychiatric Exam
Psychiatric Exam: normal mood/affect
Course
<Sandra Griffiths SPRAY PAINTING MACHINE OPERATOR - Last Filed: 10/13/24 22:34>
Orders/Labs/Results
Orders:
Orders
10/13/24 14:36
Electrocardiogram (*1) Urgent
Reason for Study: Fatigue / Weakness
CT Head W/o Iv Contrast Urgent
Comment:
Reason For Exam: change in mental status
EKG- Treatment ONCE
10/13/24 14:41
Cervical Spine wo Contrast CT [CT Cervical Spine W/o Iv Contr] Urgent
Comment:
Reason For Exam: fall
Facial Bones wo Contrast CT [CT Facial Bones W/o Iv Contras] Urgent
Comment:
Reason For Exam: fall
10/13/24 14:44
Complete Blood Count/With Diff Urgent
10/13/24 14:57
EEG [Rapid Point of Care EEG (ED/ICU ONLY)] Q1H
Indications for use:: Altered Mental Status
10/13/24 16:21
Comprehensive Metabolic Panel Urgent
Urinalysis Reflex To Culture Urgent
Date Specimen was Collected: 10/13/24
Time Specimen was Collected: 16:18
Urine Microscopic Reflex Cult Urgent
Urine Culture Urgent
JESSIE Source: U
Specimen Description:
Date Specimen was Collected: 10/13/24
Time Specimen was Collected: 16:18
Abnormal Lab Results
10/13/24 10/13/24 10/13/24
13:58 14:44 16:21
RBC 3.39 L 10^6/uL
(4.20-5.40)
Hgb 10.7 L g/dL
(12.0-16.0)
Hct 33.0 L %
(37.0-47.0)
MCH 31.6 H pg
(27.0-31.0)
MCHC 32.4 L g/dL
(33.0-37.0)
MPV 11.0 H fL
(7.4-10.4)
Abs Immat Gran (auto) 0.1 H 10^3/uL
(0-0.05)
Absolute Lymphs (auto) 0.9 L 10^3/uL
(1.2-3.4)
Immature Gran % 1.5 H %
(0-0.5)
Lymphocytes % 13.4 L %
(20.5-51.1)
Chloride 109 H mmol/L
(98-107)
BUN 26 H mg/dl
(7-17)
Total Protein 5.9 L g/dl
(6.3-8.2)
Urine Nitrite (Reflex) Positive A
(Negative)
Leukocyte Esterase Rfl 1+ A
(Negative)
Urine Bacteria (Reflex) Many A
(Negative)
POC Glucose 143 H mg/dl
(70-99)
10/13/24 14:44
10/13/24 16:21
Vital Signs
Initial and Last Documented VS:
Initial Vital Signs
Temp Pulse Resp BP Pulse Ox
97.8 F 75 16 146/76 100
10/13/24 13:51 10/13/24 13:51 10/13/24 13:51 10/13/24 13:51 10/13/24 13:51
Last Documented Vital Signs
Temp Pulse Resp BP Pulse Ox
97.8 F 64 12 169/81 100
10/13/24 13:51 10/13/24 18:00 10/13/24 18:00 10/13/24 18:00 10/13/24 18:00
<Meño Kinsey, DO - Last Filed: 10/13/24 14:50>
Orders/Labs/Results
Orders:
Orders
10/13/24 14:36
Electrocardiogram (*1) Urgent
Reason for Study: Fatigue / Weakness
CT Head W/o Iv Contrast Urgent
Comment:
Reason For Exam: change in mental status
EKG- Treatment ONCE
10/13/24 14:41
Cervical Spine wo Contrast CT [CT Cervical Spine W/o Iv Contr] Urgent
Comment:
Reason For Exam: fall
Facial Bones wo Contrast CT [CT Facial Bones W/o Iv Contras] Urgent
Comment:
Reason For Exam: fall
10/13/24 14:44
Complete Blood Count/With Diff Urgent
10/13/24 14:57
EEG [Rapid Point of Care EEG (ED/ICU ONLY)] Q1H
Indications for use:: Altered Mental Status
10/13/24 16:21
Comprehensive Metabolic Panel Urgent
Urinalysis Reflex To Culture Urgent
Date Specimen was Collected: 10/13/24
Time Specimen was Collected: 16:18
Urine Microscopic Reflex Cult Urgent
Urine Culture Urgent
JESSIE Source: U
Specimen Description:
Date Specimen was Collected: 10/13/24
Time Specimen was Collected: 16:18
Abnormal Lab Results
10/13/24 10/13/24 10/13/24
13:58 14:44 16:21
RBC 3.39 L 10^6/uL
(4.20-5.40)
Hgb 10.7 L g/dL
(12.0-16.0)
Hct 33.0 L %
(37.0-47.0)
MCH 31.6 H pg
(27.0-31.0)
MCHC 32.4 L g/dL
(33.0-37.0)
MPV 11.0 H fL
(7.4-10.4)
Abs Immat Gran (auto) 0.1 H 10^3/uL
(0-0.05)
Absolute Lymphs (auto) 0.9 L 10^3/uL
(1.2-3.4)
Immature Gran % 1.5 H %
(0-0.5)
Lymphocytes % 13.4 L %
(20.5-51.1)
Chloride 109 H mmol/L
(98-107)
BUN 26 H mg/dl
(7-17)
Total Protein 5.9 L g/dl
(6.3-8.2)
Urine Nitrite (Reflex) Positive A
(Negative)
Leukocyte Esterase Rfl 1+ A
(Negative)
Urine Bacteria (Reflex) Many A
(Negative)
POC Glucose 143 H mg/dl
(70-99)
10/13/24 14:44
10/13/24 16:21
Vital Signs
Initial and Last Documented VS:
Initial Vital Signs
Temp Pulse Resp BP Pulse Ox
97.8 F 75 16 146/76 100
10/13/24 13:51 10/13/24 13:51 10/13/24 13:51 10/13/24 13:51 10/13/24 13:51
Last Documented Vital Signs
Temp Pulse Resp BP Pulse Ox
97.8 F 64 12 169/81 100
10/13/24 13:51 10/13/24 18:00 10/13/24 18:00 10/13/24 18:00 10/13/24 18:00
<Sandra Griffiths NP - Last Filed: 10/13/24 22:34>
*Pulse Oximetry
SaO2: 100
Oxygen Mode of Delivery: Room air
Patient hypoxic: no
*Critical Care Note
Total Time (30-74mins, 75-104mins- exclusive of procedures): Not Applicable
<Sandra Griffiths NP - Last Filed: 10/13/24 22:34>
Update Note
Update Note:
Patient to ED from [place] with report of altered mental status. Patient has been here before with same. On arrival she responds to painful stimulus only. VSS, she is afebrile. Labs, CT reports reviewed. No concerning findings noted. I did return to
her room and asked her to open her eyes to see who came to see her. SHe immediately opened her eyes, looked around the room. SHe asked for lemonade, was able to drink gingerale. She is at her baseline. Will discharge back to snf.
ED Attending Note
<Sandra Griffiths NP - Last Filed: 10/13/24 22:34>
-
Portions of this chart may have been created with voice recognition software.� Occasional wrong word or��sound alike� substitutions may have occurred due to the inherent limitations of voice recognition software.
<Meño Kinsey, DO - Last Filed: 10/13/24 14:50>
ED Attending Note
Patient seen and examined by attending physician: Yes
I performed the substantive portion of visit, reviewed & personally made and approve the management plan that is documented in note by myself or RUTH.: Yes
ED Attending Note:
Seen with nurse practitioner examined independently 78-year-old female presents with altered sensorium here she has subacute appearing bruising around the right eye Accu-Chek 150 decreased responsiveness still appears to have some purposeful movemen
when attempting to look in her right eye, does appear to be incontinent of urine
Apparently suffers from mental illness and has done similar in the past,
Will attempt to rule out medical pathologic versus psychiatric pathologic issues with CT of the head cervical spine rapid EEG
Discharge Plan
Departure
Patient Disposition: Home (Routine Discharge)
Date of Disposition: 10/13/24
Time of Disposition: 17:21
Patient with high blood pressure during this ER visit?: No
Condition: Good
Covid-19: Not Applicable
Discharge Problem:
Weakness
Instructions: Dementia (DC)
Prescriptions:
No Action
atorvastatin 20 MG tablet
20 mg PO HS
hydroxychloroquine 200 MG tablet
400 mg PO DAILY
metformin 500 mg Tablet
500 mg PO BID
galantamine 4 mg Tablet
8 mg PO BID
clopidogrel [Plavix] 75 mg Tablet
75 mg PO DAILY
levothyroxine 150 mcg Tablet
150 mcg PO DAILY
memantine 10 mg Tablet
10 mg PO BID
acetaminophen [Tylenol] 325 mg Tablet
650 mg PO Q4HPRN PRN (Reason: mild pain)
loperamide 2 mg Tablet
2 mg PO Q2HPRN PRN (Reason: diarrhea)
melatonin 5 mg Tablet
5 mg PO HSPRN PRN (Reason: sleep)
miconazole nitrate [Miconazorb AF] 2 % powder
1 applic topical BID
cephalexin 500 mg Capsule
500 mg PO BID Qty: 6 0RF
Referrals:
Anshu Ku MD [Family Provider, Internal Medicine] - Tomorrow
Interventions
Interventions:
*Risk Screen - Suicide Last Done: 10/13/24 13:55
*General Assessment Last Done: 10/13/24 13:55
*Neglect/Abuse Screening Last Done: 10/13/24 13:55
*ED- Fall Risk Assessment Last Done: 10/13/24 13:55
*ED COVID-19 Vaccine History Last Done: 10/13/24 13:55
*Nursing Disposition Last Done: 10/13/24 19:18
ED- Pulmonary Assessment Last Done: 10/13/24 19:24
ED-Psychological Assessment Last Done: 10/13/24 19:24
ED- Neurological Assessment Last Done: 10/13/24 13:54
ED- Cardiac Assessment Last Done: 10/13/24 19:24
ED Swallowing Screen Last Done: 10/13/24 13:54
Discharge Date and Time
Discharge Date/Time: 10/13/24 19:26
Print Language: TAMAZIGHT
[2024-10-13 14:58] LABS: Hematocrit 33.0 % (37.0-47.0); Hemoglobin 10.7 g/dL (12.0-16.0); Mean Corp Hgb Conc. 32.4 g/dL (33.0-37.0); Mean Corpuscular Volume 97.3 fL (81.0-99.0); Nucleated Red Blood Cells % 0 %; Platelet Count 204 10^3/uL (130-400); Red Cell Dist. Width 13.2 % (11.5-14.5)
[2024-10-13 15:00] VITALS: BP 163/66
[2024-10-13 16:00] VITALS: BP 167/68
[2024-10-13 16:27] LABS: Urine Character Clear (Clear)
[2024-10-13 16:35] LABS: Urine Red Blood Cell 0-2 /HPF (0-2); Urine Squamous Cell 0-2 /LPF (Few)
--- NOTE | 2024-10-13 16:37 | W.RAPID.EEG ---
Rapid EEG
-
Procedure Date: 10/13/24
Results:
Duration: 01:18:01 (78 minutes)
Recording Technique: This EEG was obtained using a 10 lead, 8 channel circumferential rapid EEG with no parasagittal coverage.
No evidence of status epilepticus
[2024-10-13 16:40] LABS: ALT (SGPT) 21 U/L (0-35); AST (SGOT) 26 U/L (14-36); Albumin 3.7 g/dl (3.5-5.0); Alkaline Phosphatase 46 U/L (38-126); Blood Urea Nitrogen 26 mg/dl (7-17); Calcium 8.9 mg/dl (8.4-10.2); Carbon Dioxide 25 mmol/L (22-30); Chloride 109 mmol/L (98-107); Glucose 94 mg/dl (70-99); Potassium 4.7 mmol/L (3.5-5.1); Sodium 138 mmol/L (135-145); Total Protein 5.9 g/dl (6.3-8.2); eGFR 57.31
[2024-10-13 17:00] VITALS: BP 143/68
[2024-10-13 18:00] VITALS: BP 169/81
== END 2024-10-13 19:26 ==
LOC: EMR 13:42
PROVIDERS: Nurse Practitioner; EMERGENCY PHYSICIAN Emergency Medicine; FAMILY PHYSICIAN Internal Medicine Geriatric Medicine
DX: R53.1 Weakness (principal); I10 Essential (primary) hypertension; E03.9 Hypothyroidism, unspecified; E78.00 Pure hypercholesterolemia, unspecified; F03.90 Unspecified dementia, unspecified severity, without behavioral disturbance, psychotic disturbance, mood disturbance, and anxiety
CPT/HCPCS: 99284; 70450; 70486; 72125; 80053; 81003; 81015; 82962; 85025; 87077; 87086; 87186; 93005

== ENCOUNTER → 2024-11-11 09:19 | Outpatient (REF) | payer OTHER, SELFPAY ==
[2024-11-11 10:57] LABS: Hematocrit 32.2 % (37.0-47.0); Hemoglobin 10.5 g/dL (12.0-16.0); Mean Corp Hgb Conc. 32.6 g/dL (33.0-37.0); Mean Corpuscular Volume 95.0 fL (81.0-99.0); Nucleated Red Blood Cells % 0 %; Platelet Count 190 10^3/uL (130-400); Red Cell Dist. Width 12.8 % (11.5-14.5)
[2024-11-11 10:59] LABS: Urine Character Slightly Cloudy (Clear)
[2024-11-11 11:46] LABS: Urine Squamous Cell >30 /LPF (Few)
[2024-11-11 11:56] LABS: Urine Red Blood Cell 0-2 /HPF (0-2); Urine White Cell >100 /HPF (0-5)
[2024-11-11 12:17] LABS: Vitamin D, 25-OH*** 22.1 ng/mL (30-80)
[2024-11-11 12:31] LABS: TSH 51.70 uIU/ml (0.47-4.68)
[2024-11-11 14:53] LABS: ALT (SGPT) 18 U/L (0-35); AST (SGOT) 26 U/L (14-36); Albumin 3.6 g/dl (3.5-5.0); Alkaline Phosphatase 48 U/L (38-126); Blood Urea Nitrogen 25 mg/dl (7-17); Calcium 8.8 mg/dl (8.4-10.2); Carbon Dioxide 26 mmol/L (22-30); Chloride 106 mmol/L (98-107); Glucose 77 mg/dl (70-99); HDL Cholesterol 58 mg/dl; LDL Cholesterol, Calculated 27 mg/dl; Potassium 4.5 mmol/L (3.5-5.1); Sodium 137 mmol/L (135-145); Total Protein 5.6 g/dl (6.3-8.2); Very Low Density Lipoprotein 20 mg/dl (0-30); eGFR 38.27
== END ==
LOC: OLABLV 09:19
PROVIDERS: ATTENDING PHYSICIAN Internal Medicine Geriatric Medicine
DX: I10 Essential (primary) hypertension (principal); E78.2 Mixed hyperlipidemia; E03.9 Hypothyroidism, unspecified; E66.9 Obesity, unspecified; G45.8 Other transient cerebral ischemic attacks and related syndromes; N18.2 Chronic kidney disease, stage 2 (mild); Z13.89 Encounter for screening for other disorder; Z23 Encounter for immunization
CPT/HCPCS: 36415; 80053; 80061; 81003; 81015; 82306; 84443; 85025

== ENCOUNTER → 2024-12-23 15:00 | Outpatient (REF) | payer OTHER, SELFPAY ==
[2024-12-24 12:21] LABS: Urine Character Cloudy (Clear)
[2024-12-24 14:55] LABS: Urine Squamous Cell >30 /LPF (Few)
[2024-12-24 14:56] LABS: Urine Red Blood Cell 0-2 /HPF (0-2); Urine White Cell 26-30 /HPF (0-5)
== END ==
LOC: OLABLV 15:00
PROVIDERS: ATTENDING PHYSICIAN Internal Medicine Geriatric Medicine
DX: I10 Essential (primary) hypertension (principal); E78.2 Mixed hyperlipidemia; N17.9 Acute kidney failure, unspecified
CPT/HCPCS: 81003; 81015; 87077; 87086

== ENCOUNTER 2025-01-26 22:39 | Emergency (ER) | payer OTHER, SELFPAY ==
[2025-01-26 22:47] VITALS: BP 104/33
[2025-01-27 00:21] VITALS: BP 110/55
[2025-01-27 04:23] LABS: Hematocrit 31.7 % (37.0-47.0); Hemoglobin 10.5 g/dL (12.0-16.0); Mean Corp Hgb Conc. 33.1 g/dL (33.0-37.0); Mean Corpuscular Volume 94.6 fL (81.0-99.0); Nucleated Red Blood Cells % 0 %; Platelet Count 151 10^3/uL (130-400); Red Cell Dist. Width 14.1 % (11.5-14.5)
[2025-01-27 04:29] LABS: INR 1.08; PT 14.2 Sec (11.4-14.6)
[2025-01-27 04:30] LABS: APTT 32.3 Sec (23.4-35.0)
[2025-01-27 04:42] LABS: ALT (SGPT) 15 U/L (0-35); AST (SGOT) 25 U/L (14-36); Albumin 3.3 g/dl (3.5-5.0); Alkaline Phosphatase 40 U/L (38-126); Blood Urea Nitrogen 30 mg/dl (7-17); Calcium 8.9 mg/dl (8.4-10.2); Carbon Dioxide 24 mmol/L (22-30); Chloride 112 mmol/L (98-107); Glucose 95 mg/dl (70-99); Potassium 4.2 mmol/L (3.5-5.1); Sodium 139 mmol/L (135-145); Total Protein 5.7 g/dl (6.3-8.2); eGFR 35.01
--- NOTE | 2025-01-27 05:19 | ED.GENMED ---
History of Present Illness
General
Chief Complaint: Fall
Source: patient
Exam Limitations: none
Time Seen by Provider: 01/27/25 03:53
Nursing documentation reviewed up to this point in time: agreed with
History of Present Illness
History of Present Illness:
This is a 79-year-old female with past medical history of dementia from [facility], mitral valve prolapse, hypertension, hyperlipidemia, hypothyroidism, who presents ER today with concerns of a fall. EMS reports that while at the nursing
home, she fell out of bed hitting the back of her head. She does have a history of recurrent falls. She does not recall how she fell and is not able to provide much history. She tells me to leave her alone. She denies chest pain, headache, neck
pain, abdominal pain, rib pain, trouble breathing.
Past History
Past History
ED Past Medical History: HTN, Hypercholesterolemia, Hypothyroidism, Other ('skin lupus' ) and Other (Dementia)
ED Past Surgical History: Gynecological (Hysterectomy), Orthopedic (2 knee replacments (1 B/L)) and Other (B/L cataract resections; MRSA)
Social History
Tobacco: Non-smoker
Alcohol: None
Drug: None
Personal:
Living: longterm
Employment: Retired
Family History
Family History: Other (reviewed and non-contributory)
Review of Systems
Review of Systems
All Other Systems: ROS reviewed and negative except as documented in HPI and ROS
Phy Exam
Physical Exam
Physical Exam:
General: Patient is well appearing and in no acute distress; non-toxic
Becomes combative at and agitated from time to time
Skin: Warm and dry, no rashes or lesions
Head: Small contusion noted to right posterior scalp which was thoroughly irrigated by nurses
Eyes: Sclera non-icteric. EOMs intact.
Cardiac: Regular rate and rhythm, no murmurs
Peripheral Vascular: No lower extremity swelling or edema
Pulm: Normal respiratory effort, no wheezes, rales, rhonchi
Abdomen: No abdominal tenderness to palpation
Musculoskeletal: No midline cervical spinal tenderness, no tenderness palpation of the abdomen over the ribs
Neuro: CN II-XII intact, no focal neurologic deficits.
Psychiatric: Appropriate mood and affect.
Course
Orders/Labs/Results
Orders:
Orders
01/26/25 23:03
CT Cervical Spine W/o Iv Contr Urgent
Comment:
Reason For Exam: fall with head injury
CT Head W/o Iv Contrast Urgent
Comment:
Reason For Exam: head injury with hematoma
01/27/25 04:10
Complete Blood Count/With Diff Urgent
Comprehensive Metabolic Panel Urgent
PT/INR [Prothrombin Time] Urgent
PTT Urgent
Abnormal Lab Results
01/27/25
04:10
RBC 3.35 L 10^6/uL
(4.20-5.40)
Hgb 10.5 L g/dL
(12.0-16.0)
Hct 31.7 L %
(37.0-47.0)
MCH 31.3 H pg
(27.0-31.0)
MPV 12.3 H fL
(7.4-10.4)
Absolute Monos (auto) 0.9 H 10^3/uL
(0.1-0.6)
Monocytes % 14.3 H %
(1.7-9.3)
Chloride 112 H mmol/L
(98-107)
BUN 30 H mg/dl
(7-17)
Creatinine 1.5 H mg/dL
(0.6-1.0)
Total Protein 5.7 L g/dl
(6.3-8.2)
Albumin 3.3 L g/dl
(3.5-5.0)
01/27/25 04:10
01/27/25 04:10
Vital Signs
Initial and Last Documented VS:
Initial Vital Signs
Temp Pulse Resp BP Pulse Ox
97.6 F 65 18 104/33 98
01/26/25 22:47 01/26/25 22:47 01/26/25 22:47 01/26/25 22:47 01/26/25 22:47
Last Documented Vital Signs
Temp Pulse Resp BP Pulse Ox
97.6 F 74 18 105/67 97
01/26/25 22:47 01/27/25 05:46 01/27/25 05:46 01/27/25 05:46 01/27/25 05:46
MDM/Problems Addressed
Differential Diagnosis Includes:
Intracerebral hemorrhage, scalp contusion, anemia, cervical fracture
MDM/Problems Addressed:
79-year-old female presents to the ER today with concerns of a scalp contusion following a fall with head strike. On physical exam, she is very confused at baseline and has a history of dementia which she states at a memory care unit. She has a
contusion on her right posterior scalp otherwise no evidence of traumatic injury. She has no tenderness to palpation in the abdomen, and denies pain for me. She is confused as to why she is here. Labs were ordered by my ED attending because she
looked to have paler. She does have anemia which is at her baseline compared to who previous blood work. No leukocytosis. Renal function at baseline. Head CT reviewed and she has no intracranial abnormality. She has no evidence of cervical
spine fracture but she does have irregular clarity of the T1 endplate which could be a subtle nondisplaced fracture. Patient will need follow-up for this and need Tylenol as needed for pain. Patient denies back pain at this time. Patient stable
for discharge.
Chronic conditions affecting care:
dementia
*Pulse Oximetry
SaO2: 97
Oxygen Mode of Delivery: Room air
Patient hypoxic: no
*Critical Care Note
Total Time (30-74mins, 75-104mins- exclusive of procedures): Not Applicable
Data Reviewed
Review of Other/Old Records Reveals: Records (Required ER physician documentation from 10/13/2024, patient seen for weakness, reviewed ER physician documentation from 10/05/2024 patient seen for head injury)
Source: patient and records
ED Attending Note
-
Portions of this chart may have been created with voice recognition software.� Occasional wrong word or��sound alike� substitutions may have occurred due to the inherent limitations of voice recognition software.
Discharge Plan
Departure
Patient Disposition: Home (Routine Discharge)
Date of Disposition: 01/27/25
Time of Disposition: 05:22
Patient with high blood pressure during this ER visit?: No
Condition: Good
Discharge Problem:
Fall, Contusion of scalp, Deformity of thoracic vertebra
Instructions: Head Injury in Adults (DC), Skin Abrasions (DC)
Prescriptions:
No Action
atorvastatin 20 MG tablet
20 mg PO HS
hydroxychloroquine 200 MG tablet
400 mg PO DAILY
metformin 500 mg Tablet
500 mg PO BID
galantamine 4 mg Tablet
8 mg PO BID
clopidogrel [Plavix] 75 mg Tablet
75 mg PO DAILY
levothyroxine 150 mcg Tablet
150 mcg PO DAILY
memantine 10 mg Tablet
10 mg PO BID
acetaminophen [Tylenol] 325 mg Tablet
650 mg PO Q4HPRN PRN (Reason: mild pain)
loperamide 2 mg Tablet
2 mg PO Q2HPRN PRN (Reason: diarrhea)
melatonin 5 mg Tablet
5 mg PO HSPRN PRN (Reason: sleep)
miconazole nitrate [Miconazorb AF] 2 % powder
1 applic topical BID
cephalexin 500 mg Capsule
500 mg PO BID Qty: 6 0RF
cefdinir 300 mg capsule
300 mg PO BID Qty: 14 0RF
Referrals:
Anshu Ku MD [Family Provider, Internal Medicine]
Activity Restrictions/Additional Instructions:
Your imaging demonstrates a possible T1 compression deformity, however this may be old and may not be acute. I recommend following up with your primary care provider and orthopedics.
PLEASE RETURN TO THE ER SHOULD YOU DEVELOP CHEST PAIN, SHORTNESS OF BREATH, DIZZINESS, LIGHTHEADEDNESS, HEADACHE, NECK PAIN, OR ANY OTHER SIGNS OR SYMPTOMS WORRISOME TO YOU.
Interventions
Interventions:
*General Assessment Last Done: 01/26/25 22:45
*Neglect/Abuse Screening Last Done: 01/26/25 22:45
*ED COVID-19 Vaccine History Last Done: 01/27/25 00:21
*ED Influenza Vaccine History Last Done: 01/27/25 00:21
[facility] Fall Risk Assessment Tool Last Done: 01/27/25 00:23
*Risk Screen - Suicide (C-SSRS) Last Done: 01/27/25 00:21
*Nursing Disposition Last Done: 01/27/25 06:40
ED-Musculoskeletal Assessment Last Done: 01/27/25 00:22
ED- Neurological Assessment Last Done: 01/27/25 00:22
ED-Skin Assessment Last Done: 01/27/25 00:22
Discharge Date and Time
Discharge Date/Time: 01/27/25 06:41
Print Language: [place] ISLAND[place]
[2025-01-27 05:46] VITALS: BP 105/67
== END 2025-01-27 06:41 ==
LOC: EMR 22:39
PROVIDERS: EMERGENCY PHYSICIAN Student in an Organized Health Care Education/Training Program; FAMILY PHYSICIAN Internal Medicine Geriatric Medicine
DX: S00.03XA Contusion of scalp, initial encounter (principal); M43.8X4 Other specified deforming dorsopathies, thoracic region; W06.XXXA Fall from bed, initial encounter; R29.6 Repeated falls; E03.9 Hypothyroidism, unspecified; E78.00 Pure hypercholesterolemia, unspecified; I34.1 Nonrheumatic mitral (valve) prolapse; I10 Essential (primary) hypertension; F02.80 Dementia in other diseases classified elsewhere, unspecified severity, without behavioral disturbance, psychotic disturbance, mood disturbance, and anxiety; D64.9 Anemia, unspecified
CPT/HCPCS: 99284; 70450; 72125; 80053; 85025; 85610; 85730

== ENCOUNTER 2025-02-04 18:26 | Emergency (ER) | payer OTHER, SELFPAY ==
[2025-02-04 18:31] VITALS: BP 116/45
--- NOTE | 2025-02-04 20:16 | ED.GENMED ---
History of Present Illness
General
Chief Complaint: Fall
Source: ambulance crew
Time Seen by Provider: 02/04/25 19:01
History of Present Illness
History of Present Illness:
79-year-old female with past medical history of dementia presenting to the ER from [facility] for evaluation after she had an accidental fall and hit her head on another resident's wheelchair. The fall was reportedly witnessed by staff at [facility].
There was no reported loss of consciousness or change in behavior for the patient. History was unobtainable from the patient due to her reported dementia
Past History
Past History
ED Past Medical History: HTN, Hypercholesterolemia, Hypothyroidism, Other ('skin lupus' ) and Other (Dementia)
ED Past Surgical History: Gynecological (Hysterectomy), Orthopedic (2 knee replacments (1 B/L)) and Other (B/L cataract resections; MRSA)
Social History
Tobacco: Non-smoker
Alcohol: None
Drug: None
Personal:
Living: penitentiary
Employment: Retired
Family History
Family History: Other (reviewed and non-contributory)
Review of Systems
Review of Systems
All Other Systems: ROS reviewed and negative except as documented in HPI and ROS
Phy Exam
Physical Exam
Physical Exam:
GENERAL: Alert , in no apparent distress
EYE: conjunctiva clear
Head: Very small abrasion to the right occipital region, no active bleeding
NECK: Supple,
ENT: mmm.
LUNGS: no acute respiratory distress
NEUROLOGICAL: Alert and oriented to self but not place or time
SKIN: Warm and dry, skin intact.
MUSCULOSKELETAL: well perfused.
PSYCH: Normal and appropriate interaction.
Scores
Heart Failure Risk
Heart Failure Risk Score: Not Applicable
Heart Score for Chest Pain Patients
STEMI patient?: Not applicable
Withdrawal Assessment of Alcohol
Withdrawal Assessment Completed?: Not applicable
Course
Orders/Labs/Results
Orders:
Orders
02/04/25 19:[address]
CT Cervical Spine W/o Iv Contr Urgent
Comment:
Reason For Exam: fall, head injury, dementia
CT Head W/o Iv Contrast Urgent
Comment:
Reason For Exam: fall, head injury, dementia
Vital Signs
Initial and Last Documented VS:
Initial Vital Signs
Temp Pulse Resp BP Pulse Ox
97.9 F 64 16 116/45 97
02/04/25 18:31 02/04/25 18:31 02/04/25 18:31 02/04/25 18:31 02/04/25 18:31
Last Documented Vital Signs
Temp Pulse Resp BP Pulse Ox
97.9 F 64 16 109/47 99
02/04/25 18:31 02/04/25 18:31 02/04/25 18:31 02/04/25 21:13 02/04/25 21:15
MDM/Problems Addressed
Differential Diagnosis Includes:
Accidental fall
Contusion
Concussion
Intracranial bleeding
MDM/Problems Addressed:
79-year-old female presenting to the ER for evaluation following an accidental fall. Minor head trauma noted on exam. Given her dementia history will obtain CT of the head and cervical spine.
Chronic conditions affecting care: Neurological disorder
Acute Exacerbation and/or Progression of Chronic Illness: Neurological disorder
*Radiology
Radiology exam reviewed: radiology read reviewed
*Pulse Oximetry
SaO2: 97
Oxygen Mode of Delivery: Room air
Patient hypoxic: no
*Critical Care Note
Total Time (30-74mins, 75-104mins- exclusive of procedures): Not Applicable
Patient Management
Social determinants of health affecting care: Living situation
Discussion with other providers: [facility] staff
Escalation/DeEscalation of care consider admission/obs:
Patient CT scans came back without any acute findings. Chronic findings noted. I contacted the [facility] and spoke with patient's nurse, noted chronic findings. Spoke to patients son who is POA and notified of findings as well. Arranging
for transport back to [facility]
ED Attending Note
-
Portions of this chart may have been created with voice recognition software.� Occasional wrong word or��sound alike� substitutions may have occurred due to the inherent limitations of voice recognition software.
Discharge Plan
Departure
Patient Disposition: Prison/SNF
Date of Disposition: 02/04/25
Time of Disposition: 21:48
Discharge Problem:
Head injury
Instructions: Head Injury in Adults (DC)
Prescriptions:
No Action
atorvastatin 20 MG tablet
20 mg PO HS
hydroxychloroquine 200 MG tablet
400 mg PO DAILY
metformin 500 mg Tablet
500 mg PO BID
galantamine 4 mg Tablet
8 mg PO BID
clopidogrel [Plavix] 75 mg Tablet
75 mg PO DAILY
levothyroxine 150 mcg Tablet
150 mcg PO DAILY
memantine 10 mg Tablet
10 mg PO BID
acetaminophen [Tylenol] 325 mg Tablet
650 mg PO Q4HPRN PRN (Reason: mild pain)
loperamide 2 mg Tablet
2 mg PO Q2HPRN PRN (Reason: diarrhea)
melatonin 5 mg Tablet
5 mg PO HSPRN PRN (Reason: sleep)
miconazole nitrate [Miconazorb AF] 2 % powder
1 applic topical BID
cephalexin 500 mg Capsule
500 mg PO BID Qty: 6 0RF
cefdinir 300 mg capsule
300 mg PO BID Qty: 14 0RF
Referrals:
Anshu Ku MD [Family Provider, Internal Medicine]
Interventions
Interventions:
*General Assessment Last Done: 02/04/25 18:31
*Neglect/Abuse Screening Last Done: 02/04/25 18:31
*ED COVID-19 Vaccine History Last Done: 02/04/25 21:23
*ED Influenza Vaccine History Last Done: 02/04/25 21:23
[facility] Fall Risk Assessment Tool Last Done: 02/04/25 21:23
*Risk Screen - Suicide (C-SSRS) Last Done: 02/04/25 18:34
ED-Musculoskeletal Assessment Last Done: 02/04/25 21:23
ED- Neurological Assessment Last Done: 02/04/25 21:23
ED-Skin Assessment Last Done: 02/04/25 21:23
Discharge Date and Time
Print Language: SPANISH
[2025-02-04 21:13] VITALS: BP 109/47
[2025-02-04 22:00] VITALS: BP 110/52
[2025-02-04 23:00] VITALS: BP 103/52
== END 2025-02-04 23:34 ==
LOC: EMR 18:26
PROVIDERS: EMERGENCY PHYSICIAN Emergency Medicine; FAMILY PHYSICIAN Internal Medicine Geriatric Medicine
DX: S09.90XA Unspecified injury of head, initial encounter (principal); W19.XXXA Unspecified fall, initial encounter; I10 Essential (primary) hypertension; E03.9 Hypothyroidism, unspecified; E78.00 Pure hypercholesterolemia, unspecified; F03.90 Unspecified dementia, unspecified severity, without behavioral disturbance, psychotic disturbance, mood disturbance, and anxiety
CPT/HCPCS: 99284; 70450; 72125